=== PATIENT | female | born 1960 | race Caucasian/White ===

== ENCOUNTER 2020-04-21 10:10 | Outpatient (CLI) | payer BC, SELFPAY ==
--- NOTE | ~2020-04-21 | US_ITS ---
EXAMINATION: 1. US FNA w image guidance 2. US FNA additional DATE: 04/21/2020 11:11 INDICATION: Thyroid nodules. TECHNIQUE: The procedure and its benefits, risks, and benefits were discussed with the patient. Risks specifical ly discussed included bleeding. The patient verbalized understanding of the risks and agreed to proce ed. The neck was prepped and draped in the usual sterile manner. 1% lidocaine was used for local ane sthesia. Five passes were made with a 25G needle into the lesion in right thyroid lobe. Appropriate needle location was documented with continuous sonographic guidance. 5 passes were made with a 25-gauge needle into the lesion in right left thyroid lobe. Appropriate nee dle location was documented with continuous sonographic guidance. There were no immediate complicatio ns. The patient understood to call the ordering physician for results after a week and a half and radhames balized that understanding. FINDINGS: Grayscale ultrasound images demonstrate needles advanced into a 1.5 cm nodule in right thyroid lobe f or biopsy. Grayscale ultrasound images demonstrate needles advanced into a 1.6 cm nodule in left thyr oid lobe. IMPRESSION: 1. Ultrasound-guided fine needle aspiration of a right thyroid nodule. 2. Ultrasound-guided fine-needle aspiration of a left thyroid nodule. Reviewed, dictated and finalized at location A. IMPRESSION: 1. Ultrasound-guided fine needle aspiration of a right thyroid nodule. 2. Ultrasound-guided fine-needle aspiration of a left thyroid nodule.
== END 2020-04-21 10:11 | disposition home or self-care (01) ==
PROVIDERS: PCP Internal Medicine; Visit Provider Otolaryngology
DX: E04.2 Nontoxic multinodular goiter (principal)
CPT/HCPCS: 10005; 10006; 88173; 88305; 88342

== ENCOUNTER 2020-06-04 07:26 | Outpatient (CLI) | payer BC, SELFPAY ==
--- NOTE | ~2020-06-04 | MM_ITS ---
EXAMINATION: MM screening [facility] BI w larry HISTORY: Screening TECHNIQUE: Craniocaudal and mediolateral oblique 3-D tomosynthesis images were obtained and synthetic 2-D images were generated. CAD analysis was submitted and interpreted. COMPARISON: Comparison to multiple prior studies sequentially, with oldest reviewed study dated 09/2014. BREAST PARENCHYMAL COMPOSITION: There are scattered areas of fibroglandular density. FINDINGS: Breast asymmetries are stable. There is no evidence of suspicious mass, calcification, or a rchitectural distortion to suggest malignancy in either breast. There has been no suspicious interval change. IMPRESSION: 1. No mammographic evidence of malignancy. 2. Recommend routine screening mammography in one year. BI-RADS Category 2: Benign finding(s). Reviewed, dictated and finalized at location A. CH OR DEPARTMENT CHIEF LIBRARIAN
== END 2020-06-04 07:27 | disposition home or self-care (01) ==
LOC: ANHIMG 07:28
PROVIDERS: PCP Internal Medicine; Visit Provider Obstetrics & Gynecology
DX: Z12.31 Encounter for screening mammogram for malignant neoplasm of breast (principal)
CPT/HCPCS: 77063; 77067

== ENCOUNTER 2021-05-08 13:48 | Outpatient (CLI) | payer BC, SELFPAY ==
--- NOTE | ~2021-05-08 | US_ITS ---
EXAMINATION: US thyroid DATE: 05/08/2021 15:07 INDICATION: Nontoxic multinodular goiter. TECHNIQUE: Multiple ultrasound images of the thyroid were obtained. COMPARISON: Ultrasound 04/21/2020, 03/04/2015, 02/05/20 FINDINGS: The right thyroid lobe measures 5.0 x 2.0 x 1.3 cm. The left thyroid lobe measures 5.2 x 1.6 x 1.6 c m. The thyroid demonstrates diffusely heterogeneous echogenic of the. Vascularity is normal. In the right thyroid lobe, there is an 11 mm solid, hypoechoic, vuxyi-nojw-htoe nodule with ill-defined cristian in without echogenic foci (TI-RADS TR4). In the right thyroid lobe left thyroid lobe, there is a 17 m m solid, hypoechoic, wolie-ogot-glva nodule with smooth margin without echogenic foci (TR4), stable f rom 04/21/20 when biopsy was benign. In the left thyroid lobe, there is a 10 mm solid, hypoechoic, wi vla-dgzl-owoi nodule with ill-defined margin without echogenic foci (TR4). There are multiple subcent imeter nodules in the thyroid. IMPRESSION: 1. Multinodular goiter. Thyroid ultrasound is recommended in one year. Reviewed, dictated and finalized at location A. NG TRIMMER
== END 2021-05-08 13:49 | disposition home or self-care (01) ==
PROVIDERS: PCP Internal Medicine; Visit Provider Otolaryngology
DX: E04.2 Nontoxic multinodular goiter (principal)
CPT/HCPCS: 76536

== ENCOUNTER 2021-06-07 07:45 | Outpatient (CLI) | payer BC, SELFPAY ==
--- NOTE | ~2021-06-07 | MM_ITS ---
EXAMINATION: MM screening [facility] BI w larry HISTORY: Screening TECHNIQUE: Craniocaudal and mediolateral oblique 3-D tomosynthesis images were obtained and synthetic 2-D images were generated. CAD analysis was submitted and interpreted. COMPARISON: Comparison to multiple prior studies sequentially, with oldest reviewed study dated 09/2015. BREAST PARENCHYMAL COMPOSITION: Breast composed of scattered areas of fibroglandular density. FINDINGS: There is no evidence of suspicious mass, calcification, or architectural distortion to sugg est malignancy in either breast. There has been no suspicious interval change. IMPRESSION: 1. No mammographic evidence of malignancy. 2. Recommend routine screening mammography in one year. BI-RADS Category 1: Negative Reviewed, dictated and finalized at location A. INE PIE MAKER
== END 2021-06-07 07:46 | disposition home or self-care (01) ==
LOC: ANHIMG 07:47
PROVIDERS: PCP Internal Medicine; Visit Provider Obstetrics & Gynecology
DX: Z12.31 Encounter for screening mammogram for malignant neoplasm of breast (principal)
CPT/HCPCS: 77063; 77067

== ENCOUNTER → 2022-06-01 08:11 | Outpatient (CLI) | payer BC, SELFPAY ==
--- NOTE | ~2022-06-01 | US_ITS ---
EXAMINATION: US thyroid DATE: 06/01/2022 08:38 INDICATION: Nontoxic multinodular goiter. TECHNIQUE: Multiple ultrasound images of the thyroid were obtained. COMPARISON: Ultrasound 05/08/2021 FINDINGS: The right thyroid lobe measures 4.7 x 1.5 x 1.6 cm. The left thyroid lobe measures 4.6 x 1.5 x 1.6 c m. In the right thyroid lobe, there is a 7 mm solid, hypoechoic, wider than tall nodule with smooth margin without echogenic foci (TI-RADS TR4). In the right thyroid lobe, there is a 9 mm mixed cystic and solid, hypoechoic, wider than tall nodule with smooth margin without echogenic foci (TR3). In the right thyroid lobe, there is a 13 mm solid, hypoechoic, wider than tall nodule with ill-defined cristian in and punctate echogenic foci (TR5), increased from 9 mm on 03/04/15. In the left thyroid lobe, there is a 1.3 cm solid, isoechoic, wider than tall nodule with ill-defined margin and punctate echogenic f oci (TR4), stable from 04/21/20 when biopsy was benign. IMPRESSION: 1. Multinodular goiter. Consider ultrasound-guided fine-needle aspiration of the 13 mm nodule in infe rior right thyroid lobe. Reviewed, dictated and finalized at location A. LIARY ENGINEER IMPRESSION: 1. Multinodular goiter. Consider ultrasound-guided fine-needle aspiration of th e 13 mm nodule in inferior right thyroid lobe.
== END ==
PROVIDERS: PCP Otolaryngology; Visit Provider Otolaryngology
DX: E04.2 Nontoxic multinodular goiter (principal)
CPT/HCPCS: 76536

== ENCOUNTER 2022-06-27 08:57 | Outpatient (CLI) | payer BC, SELFPAY ==
--- NOTE | ~2022-06-27 | US_ITS ---
EXAMINATION: US FNA w image guidance DATE: 06/27/2022 10:13 INDICATION: TI-RADS 5 nodules at the inferior right thyroid TECHNIQUE: A time-out was performed to verify the patient's name, date of , and procedure to be performed . The procedure and its benefits and risks were discussed with the patient. Risks specifically discus sed included bleeding and infection. The patient understood the risks and agreed to proceed. The neck was prepped and draped in the usual sterile manner. 3 mL 1% lidocaine was used for local anesthesia . 6 passes were made with a 25G needle into the lesion. Appropriate needle location was documented with continuous sonographic guidance. A sterile bandage was applied. There were no immediate compli cations. FINDINGS: Grayscale ultrasound images demonstrate biopsy needles advanced into the solid hypoechoic nodule of c oncern at the inferior right thyroid which measures 1.4 cm on the current study. IMPRESSION: 1. Successful ultrasound-guided fine needle aspiration of the enlarging 1.4 cm nodule at the inferio r right thyroid lobe. Reviewed, dictated and finalized at location A. NG FORMER IMPRESSION: 1. Successful ultrasound-guided fine needle aspiration of the enlarging 1.4 cm nodule at the inferior right thyroid lobe.
== END 2022-06-27 08:58 | disposition home or self-care (01) ==
PROVIDERS: PCP Internal Medicine; Visit Provider Otolaryngology
DX: E04.1 Nontoxic single thyroid nodule (principal)
CPT/HCPCS: 10005; 88173; 88305

== ENCOUNTER 2022-07-13 07:46 | Outpatient (CLI) | payer BC, SELFPAY ==
--- NOTE | ~2022-07-13 | MM_ITS ---
EXAMINATION: MM screening [facility] BI w larry HISTORY: Screening TECHNIQUE: Craniocaudal and mediolateral oblique 3-D tomosynthesis images were obtained and synthetic 2-D images were generated. CAD analysis was submitted and interpreted. COMPARISON: Comparison to multiple prior studies sequentially, with oldest reviewed study dated 05/01. BREAST PARENCHYMAL COMPOSITION: There are scattered areas of fibroglandular density. FINDINGS: There is no evidence of suspicious mass, calcification, or architectural distortion to sugg est malignancy in either breast. There has been no suspicious interval change. IMPRESSION: 1. No mammographic evidence of malignancy. 2. Recommend routine screening mammography in one year. BI-RADS Category 1: Negative Reviewed, dictated and finalized at location A. NT SERVICES ANALYST
== END 2022-07-13 07:47 | disposition home or self-care (01) ==
LOC: ANHIMG 07:47
PROVIDERS: PCP Internal Medicine; Visit Provider Obstetrics & Gynecology
DX: Z12.31 Encounter for screening mammogram for malignant neoplasm of breast (principal)
CPT/HCPCS: 77063; 77067

== ENCOUNTER → 2022-12-18 13:46 | Outpatient (CLI) | payer BC, SELFPAY ==
--- NOTE | ~2022-12-18 | CT_ITS ---
CT of the Abdomen and Pelvis: Indication: Abdominal pain Technique: 2.5 mm axial scans were obtained through the abdomen and pelvis following intravenous adm inistration of 100 cc of Omnipaque 350. Dose reduction technique was used on this scan by utilizing a utomated exposure control and iterative reconstruction technique. The dose-length product (DLP) was 8 85.08 mGy-cm. Findings: Scans through the lung bases are unremarkable. The liver, spleen, pancreas, gallbladder, adrenals and kidneys are within normal limits. No evidence of aortic aneurysm. No lymphadenopathy. No bowel obstruction or bowel wall thickening. There is no evidence to suggest acute appendicitis. Images through the pelvis were performed. Urinary bladder unremarkable. No adnexal mass seen. No asci marsha. Impression: No significant abnormalities seen. Reviewed, dictated and finalized at [facility]. Impression: No significant abnormalities seen.
[2022-12-18 14:16] LABS: Estimated Glomerular Filt Rate > 60
== END ==
PROVIDERS: PCP Internal Medicine; Visit Provider Internal Medicine
DX: R10.9 Unspecified abdominal pain (principal)
CPT/HCPCS: 74177; Q9967

== ENCOUNTER 2023-09-12 07:17 | Outpatient (CLI) | payer BC, SELFPAY ==
--- NOTE | ~2023-09-12 | MM_ITS ---
EXAMINATION: MM screening abelardo BI w larry HISTORY: Screening mammogram TECHNIQUE: Craniocaudal and mediolateral oblique 3-D tomosynthesis images were obtained and synthetic 2-D images were generated. CAD analysis was submitted and interpreted. COMPARISON: 07/13/2022, bilateral screening mammogram examinations BREAST PARENCHYMAL COMPOSITION: There are scattered areas of fibroglandular density. FINDINGS: There is no evidence of suspicious mass, calcification, or architectural distortion to sugg est malignancy in either breast. There has been no suspicious interval change. IMPRESSION: 1. No mammographic evidence of malignancy. 2. Recommend routine screening mammography in one year. BI-RADS Category 1: Negative Reviewed, dictated and finalized at location A.
== END 2023-09-12 07:18 | disposition home or self-care (01) ==
PROVIDERS: PCP Internal Medicine; Visit Provider Obstetrics & Gynecology
DX: Z12.31 Encounter for screening mammogram for malignant neoplasm of breast (principal)
CPT/HCPCS: 77063; 77067

== ENCOUNTER 2024-08-25 15:12 | Outpatient (CLI) | payer BC, SELFPAY ==
--- NOTE | ~2024-08-25 | US_ITS ---
EXAMINATION: US thyroid DATE: 08/25/2024 15:40 INDICATION: Thyroid nodules TECHNIQUE: Multiple ultrasound images of the thyroid were obtained. COMPARISON: 06/01/2022 FINDINGS: The right thyroid lobe measures 4.2 x 1.7 x 1.7 cm. The previously biopsied nodule within the lower pole of the right lobe of the gland is no longer visu alized on today's study. Two nodules are now present. The first within the mid pole of the right lobe of the thyroid gland measuring 4.8 x 4.5 x 4.2 mm. Composition -cystic Echogenicity -hyperechoic Shape - wider than tall Margin - smooth Echogenic foci - none. = TR1, benign. The second nodule is located within the medial margin of the lower pole of the right lobe of the thyr oid gland measuring 9.6 x 5.0 x 7.5 mm Composition - spongiform Echogenicity -hyperechoic and isoechoic (1) Shape - wider than tall Margin - smooth Echogenic foci - none. = TR1, benign. The left thyroid lobe measures 5.0 x 1.5 x 1.9 cm. Within the lower pole of the left lobe of the thyroid gland is redemonstration of a thyroid nodule me asuring 13.5 x 8.6 x 8.6 mm (decreased in size from previous study). Composition - spongiform Echogenicity - hyperechoic and isoechoic (1) Shape - wider than tall Margin - smooth Echogenic foci - none. = TR1, benign. The isthmus measures 0.1cm in anterior to posterior dimension. There is otherwise normal echotexture and echogenicity throughout the remainder of the thyroid gland. No additional discrete nodules are identified. Globally increased vascular flow is present throughout. IMPRESSION: TR1, benign nodules within the right and left lobes of the thyroid gland for which no FNA is recommen ded. Follow-up thyroid ultrasound in 2-3 years may be performed but is not strictly recommended. Reviewed, dictated and finalized at location A. NG PICKLING PACKER IMPRESSION: TR1, benign nodules within the right and left lobes of the thyroid gland for wh ich no FNA is recommended. Follow-up thyroid ultrasound in 2-3 years may be performed but is not strictly recommended.
== END 2024-08-25 15:13 | disposition home or self-care (01) ==
PROVIDERS: PCP Otolaryngology Otolaryngology/Facial Plastic Surgery; Visit Provider Otolaryngology Otolaryngology/Facial Plastic Surgery
DX: E04.2 Nontoxic multinodular goiter (principal)
CPT/HCPCS: 76536

== ENCOUNTER 2024-12-08 08:33 | Outpatient (CLI) | payer BC, SELFPAY ==
--- NOTE | ~2024-12-08 | DEXA_ITS ---
Bone Density Report Name: HOANG ZAVALETA Age: 64 Sex: Female Ethnicity: White Date of : 1960 Indication: postmenopausal; screening for osteoporosis; Referring Provider: LALO FORD Study: Bone densitometry was performed. Exam Date: December 08, 2024 Accession number: [id number] Bone Density: Region BMD T-score Z-score Classification AP Spine(L1-L4) 0.816 -2.1 -0.4 Osteopenia Femoral Neck (Left) 0.737 -1.0 0.4 Normal Total Hip (Left) 0.954 0.1 1.2 Normal Femoral Neck (Right) 0.707 -1.3 0.2 Osteopenia Total Hip (Right) 0.864 -0.6 0.5 Normal Total Hip Mean 0.909 -0.3 0.9 Normal World Health Organization criteria for BMD impression classify patients as: Normal (T-score at or above -1.0), Osteopenia (T-score between -1.0 and -2.5), or Osteoporosis (T-score at or below -2.5). 10-year Fracture Risk(1): Major Osteoporotic Fracture 7.8% Hip Fracture 0.7% Reported Risk Factors: [place] (), Neck BMD=0.707, BMI=22.7 (1) FRAX(R) Version 3.08. Fracture probability calculated for an untreated patient. Fracture probability may be lower if the patient has received treatment. Previous Exams: Region Exam Age BMD T-score BMD Change BMD Change Date g/cm2 vs Baseline vs Previous AP Spine (L1-L4) 12/08/2024 64 0.816 -2.1 -0.128 (-13.6% -0.128 (-13.6% 09/11/2017 57 0.944 -0.9 Total Hip(Left) 12/08/2024 64 0.954 0.1 0.002 (0.2%) 0.002 (0.2%) 09/11/2017 57 0.952 0.1 Total Hip(Right) 12/08/2024 64 0.864 -0.6 -0.042 (-4.7%) -0.042 (-4.7%) 09/11/2017 57 0.906 -0.3 *Denotes significance at 95% confidence level, LSC for AP Spine = 0.022 g/cm2, LSC for Total Hip = 0.027 g/cm2 Clinical Information Provided by Patient: Has used the following medications: Vitamin D, Calcium Patient maximum height was 63 Drinks caffeinated beverages Onset of menses at age 15 Number of children 1 Impression: The patient has low bone mass, based on the Total Spine T-score. The patient has an estimated ten-year risk of hip fracture of 0.7% and an estimated ten-year risk of major fracture of 7.8%, based on the WHO FRAX algorithm. The BMD for the AP Spine (L1-L4) decreased, changing by -13.6% since the last DXA exam. The BMD for the Total Hip(Right) decreased, changing by -4.7% since the last DXA exam. Discussion: BONE DENSITY IS LOW AT ONE OR MORE SKELETAL SITES. This patient's lowest T-score is low at one or more skeletal sites. It meets the World Health Organization's (WHO) criteria for ?low bone mass? (T-score between -1.0 and -2.5). The patient's 10-year risk of fracture as calculated by FRAX is less than the threshold where pharmacological therapy is recommended by the National Osteoporosis Foundation (NOF). However, all treatment decisions require clinical judgment and consideration of individual patient factors, including patient preferences, comorbidities, previous drug use, risk factors not captured in the FRAX model (e.g., frailty, falls, vitamin D deficiency, increased bone turnover, interval significant decline in bone density) and possible under or overestimation of fracture risk by FRAX. The patient should follow a healthful lifestyle (good nutrition with adequate calcium and vitamin D, and appropriate weight-bearing exercise). Follow-Up: Consider repeating this study in 2 years to reassess this patient's status, or sooner if there is some new clinical indication. Reported by: OWEN on 12/08/2024 9:26:00 AM. Reviewed, dictated and finalized at location A.
--- NOTE | ~2024-12-08 | MM_ITS ---
EXAMINATION: MM screening abelardo BI w larry HISTORY: Screening TECHNIQUE: Craniocaudal and mediolateral oblique 3-D tomosynthesis images were obtained and synthetic 2-D images were generated. CAD analysis was submitted and interpreted. COMPARISON: Comparison to multiple prior studies sequentially, with oldest reviewed study dated 05/02. BREAST PARENCHYMAL COMPOSITION: Not dense: There are scattered areas of fibroglandular density. FINDINGS: Stable benign low-density mass upper outer quadrant of the left breast. There is no evidenc e of suspicious mass, calcification, or architectural distortion to suggest malignancy in either [address]. There has been no suspicious interval change. IMPRESSION: 1. No mammographic evidence of malignancy. 2. Recommend routine screening mammography in one year. BI-RADS Category 2: Benign finding(s). Reviewed, dictated and finalized at location []
--- OUTSIDE RECORDS SUMMARY | 2024-12-08 08:47 | XMS_ITS | CONTINUITY OF CARE DOCUMENT ---
Author Name kel begum Address Unknown Organization [facility] Office Address [address] [place] [address] Phone [phone] Care Team Providers Care Senior Painter Name Role Phone Sudheer Ann MD Unavailable Yinka Chow DO Unavailable Yinka Chow DO Unavailable PROBLEMS Condition Status Date Provider Notes Cardiovascular screening active Carolann Verdin INSURANCE PROVIDERS Payer name Policy type / Coverage type [place] red green party ID [facility] [id number] TREATMENT PLAN Date Name CT, Coronary Calcium Score HISTORY OF PROCEDURES Procedure Date Procedure Name Provider Procedure Notes S tatus CT- Coronary CA score Sudheer Ann MD completed
--- OUTSIDE RECORDS SUMMARY | 2024-12-08 08:47 | XMS_ITS | Encounter Summary ---
Author Organization [facility] Address [address] [place] [address] Care Team Providers Care Music Therapy Specialist Name Role Phone Unavailable Primary Care Provider Unavailabl e Encounter Details Date Type Department Care Team (Late st Contact Info) Description 11/10/2021 Lab Requisition [facility] DermPath Lab [address] [place] [address] Trenton Mercedes Jr., MD [address] [place] [address] Social History Tobacco Use Types Packs/Day Years Used Date Smoking Tobacco: Never Assessed Comments Unknown Sex and Gender Information Value Date Recorded Sex Assigned at Not on file 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 Gender Identity Not on file Sexual Orientation Not on file documented as of this encounter Plan of Treatment Not on file documented as of this encounter Procedures Procedure Name Priority Date/Time Associated Diagnosis Comments DERMATOPATHOLOGY Routine 11/09/2021 12:0 0 AM CDT documented in this encounter Results * DERMATOPATHOLOGY (11/09/2021 12:00 AM CDT) Case Report Dermatopathology Report Case: [id number] Authorizing Provider: Trenton Mercedes Jr., MD Collected: 11/09/2021 12:00 AM Ordering Location: [facility] DermPath Lab Received: 11/10/2021 10:49 AM Pathologist: Chloe Genao MD Specimens: A) - Skin, left proximal pretibial region B) - Skin, right proximal dorsal forearm 2 3:36 PM CDT DERMATOPATHOLOGY LABORATORY Final Diagnosis Specimen A. SKIN, left proximal pretibial region: DERMATOFIBROMA, SUPERFICIAL PORTIONS OF (D23.9) (see microscopic description) Specimen B. SKIN, right proximal dorsal forearm: ACTINIC KERATOSIS (L57.0) 2 3:36 PM CDT DERMATOPATHOLOGY LABORATORY at 1536 CDT Clinical History A: Basal cell carcinoma vs irritated seborrheic keratosis vs squamous cell carcinoma vs dermal nevus B: Actinic keratosis vs Martnii's disease vs basal cell carcinoma vs telangiectasia 2 3:36 PM CDT DERMATOPATHOLOGY LABORATORY Gross Description Specimen A: Received is one formalin filled container labeled with the patient's name and designated left proximal pretibial region. The specimen consists of a shave biopsy measuring 6x4x1 mm. Jar 0. Specimen B: Received is one formalin filled container labeled with the patient's name and designated right proximal dorsal forearm. The specimen consists of a shave biopsy measuring 6x5x1 mm. Jar 0. 2 3:36 PM CDT DERMATOPATHOLOGY LABORATORY Microscopic Description Specimen A. SKIN, left proximal pretibial region: There is epidermal hyperplasia. Within the dermis, there is the superficial aspect of fibrohistiocytic cells in haphazard array among coarse collagen bundles. The hematoxylin and eosin stain is reviewed; immunohistochemical stains are performed to further assess the histologic features. Lesional cells are positive for Factor XIIIa and patchy CD163. Lesional cells do not show significant staining with S100, SMA, Desmin, and Pancytokeratin. CD34 stain shows focal weak positivity predominantly at the periphery of the lesion and spares the central portion. Specimen B. SKIN, right proximal dorsal forearm: There is focal parakeratosis. The lower half of the epidermis shows disorderly maturation of keratinocytes with nuclear pleomorphism. 2 3:36 PM CDT DERMATOPATHOLOGY LABORATORY Disclaimer An external and internal positive and negative controls are appropriate for the histochemical, immunohistochemical and immunofluorescence stain(s) in this case (if any), except where stated explicitly. The performance characteristics of the stain(s) cited in this report were developed and its performance characteristic determined by the Dermatopathology Laboratory at [facility], directed by Dr. Padma Schumacher. These tests need not be, and therefore are not, approved by the [place] Food and Drug Administration. The tests are used for clinical purposes. Billing Codes Specimen Charges Stain Charges 67133 35000 1 1 94501 23027 37025 34057 46018 12240 69620 1 1 1 1 1 1 1 2 3:36 PM CDT DERMATOPATHOLOGY LABORATORY Embedded Images 2 3:36 PM CDT DERMATOPATHOLOGY LABORATORY Pathology/Cytology TISSUE SPECIMEN FROM SKIN / Unknown 11/09/2021 11/10/2021 10:49 AM CDT Miscellaneous samples (specimen) TISSUE SPECIMEN FROM SKIN / Unknown 11/09/2021 11/10/2021 10:49 AM CDT us Trenton Mercedes Jr., MD LAB - PATHOLOGY/CYTOLOG Y ORDERABLES Final Result DERMATOPATHOLOGY LABORATORY [facility] - Department of Dermatology [address], [address] [phone] documented in this encounter Visit Diagnoses Not on filedocumented in this encounter
--- OUTSIDE RECORDS SUMMARY | 2024-12-08 08:47 | XMS_ITS | Encounter Summary ---
Author Organization [facility] Address [address] [place] [address] Care Team Providers Care Green Hide Inspector Name Role Phone Unavailable Primary Care Provider Unavailabl e Encounter Details Date Type Department Care Team (Late st Contact Info) Description 12/29/2019 Lab Requisition [facility] DermPath Lab [address] [place] [id number] [place] [address] [place] [address] Social History Tobacco Use Types Packs/Day Years Used Date Smoking Tobacco: Never Assessed Comments Unknown Sex and Gender Information Value Date Recorded Sex Assigned at Not on file Legal Sex Female 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 Gender Identity Not on file Sexual Orientation Not on file documented as of this encounter Plan of Treatment Not on file documented as of this encounter Procedures Procedure Name Priority Date/Time Associated Diagnosis Comments DERMATOPATHOLOGY Routine 12/28/2019 12:0 0 AM CDT documented in this encounter Results * DERMATOPATHOLOGY (12/28/2019 12:00 AM CDT) Case Report Dermatopathology Report Case: [id number] Authorizing Provider: Hina Tejada MD Collected: 12/28/2019 12:00 AM Ordering Location: [facility] DermPath Lab Received: 12/29/2019 01:06 PM Pathologist: Mary Hernandez MD Specimen: Skin, left superior parietal scalp 0 5:35 PM CDT DERMATOPATHOLOGY LABORATORY Final Diagnosis Specimen A. SKIN, left superior parietal scalp: BENIGN VERRUCOUS KERATOSIS, INFLAMED (L82.1) 0 5:35 PM CDT DERMATOPATHOLOGY LABORATORY at 1735 CDT Clinical History Inflamed seborrheic keratosis vs squamous cell carcinoma. 0 5:35 PM CDT DERMATOPATHOLOGY LABORATORY Gross Description Specimen A: Received is one formalin filled container labeled with the patient's name and designated left superior parietal scalp. The specimen consists of a shave biopsy measuring 25j69e0 mm. Jar 0. 0 5:35 PM CDT DERMATOPATHOLOGY LABORATORY Microscopic Description Specimen A. SKIN, left superior parietal scalp: Sections show hyperkeratosis, papillomatosis, hypergranulosis, and acanthosis. Inflammatory cells are present within the dermis. These histological findings can be seen in a verruca vulgaris or a seborrheic keratosis. 0 5:35 PM CDT DERMATOPATHOLOGY LABORATORY Disclaimer An external and internal positive and negative controls are appropriate for the histochemical, immunohistochemical and immunofluorescence stain(s) in this case (if any), except where stated explicitly. The performance characteristics of the stain(s) cited in this report were developed and its performance characteristic determined by the Dermatopathology Laboratory at [facility], directed by Dr. Padma Schumacher. These tests need not be, and therefore are not, approved by the [place] Food and Drug Administration. The tests are used for clinical purposes. Billing Codes Specimen Charges Stain Charges 95938 1 0 5:35 PM CDT DERMATOPATHOLOGY LABORATORY Embedded Images 0 5:35 PM CDT DERMATOPATHOLOGY LABORATORY Pathology/Cytolog y TISSUE SPECIMEN FROM SKIN / Unknown 12/28/2019 12/29/2019 1:06 PM CDT us Hina Tejada MD LAB - PATHOLOGY/CYTOLOGY ORDERABLES Final Result DERMATOPATHOLOGY LABORATORY [facility] - Department of Dermatology Staffing Program Manager [place] [address], [facility] [phone] documented in this encounter Visit Diagnoses Not on filedocumented in this encounter
--- OUTSIDE RECORDS SUMMARY | 2024-12-08 08:48 | XMS_ITS | Clinical Summary ---
Author Organization [facility] Address [address] [place] [address] Care Team Providers Care Machine Baster Name Role Phone Unavailable Primary Care Provider Unavailabl e Source Comments [facility] [employer],non-owned Affiliates and Associated Physician Practices is amultiple site organization consisting of ambulatory clinics and hospital sitesin [place], [place] and [place]. This disclosure is being madepursuant to the Care Everywhere program and may not contain all information available regarding this patient. 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 Gender Identity Not on file Sexual Orientation Not on file Plan of Treatment Health Maintenance Due Date Last Done Comments COLOGUARD (AGES 45-75) - COL ON CA SCREENING 1961 COLON MONITORING 1961 COLONOSCOPY - COLON CA SCREENING 1961 CT COLONOGRAPHY - COLON CA SCREENING 1961 Colorectal Cancer Screening 1961 FIT - COLON CA SCREENING 1961 FLEX SIG - COLON CA SCREENING 1961 LIPID TESTING 1961 MAMMOGRAM 1961 HIV SCREENING 1976 HEPATITIS C SCREENING 04/25/1979 DTAP/TDAP/TD VACCINES (1 - Tdap) 1980 PNEUMOCOCCAL VACCINE 50+ (1 of 1 - PCV) 2011 ZOSTER VACCINE (1 of 2) 2011 COVID-19 VACCINE (1 - 2023-2 5 season) 2024 DEPRESSION SCREENING 07/01/2024 INFLUENZA VACCINE (Season Ended) 2025 Respiratory Syncytial Virus (RSV) Vaccine Pt: or over 60 yrs (1 - 1-dose 75+ series) 2036 HEPATITIS B VACCINE Aged Out No longe r eligible based on patient's age to complete this topic HIB VACCINE Aged Out No longer eligi ble based on patient's age to complete this topic HPV VACCINE Aged Out No longer eligi ble based on patient's age to complete this topic MENINGOCOCCAL (Group B) VACC INE SHARED DECISION-MAKING Aged Out No longer eligibl e based on patient's age to complete this topic MENINGOCOCCAL GROUPS A/C/Y/W VACCINE Aged Out No longer eligible b ased on patient's age to complete this topic Insurance Member Subscriber Plan / Payer (Ef fective 2017-Present) Name:Pebbles Zavaleta Relation to Subscriber:Self Name:PEBBLES ZAVALETA Payer ID:[id number] (NAIC) Type:O Address: [facility] [address] [place] [id number]
--- OUTSIDE RECORDS SUMMARY | 2024-12-08 08:48 | XMS_ITS | Data Portability ---
Author Organization [facility] Address [address] [place] [address] Care Team Providers Care Packer Inspector Name Role Phone YASEMIN CHOW Primary Care Provider [phone] Assessment Encounter Date Assessment Date Assessment LastModified by Organization Details LastModified Time 09/25/2023 09/25/2023 Blood work we wi ll try some MiraLAX for constipation she thinks he had a colonoscopy just in the last year or so. We discussed more restratification for cardiovascular disease high-sensitivity CRP coronary calcium scoring etc. actually gave her the name of a top frame maker at [facility] if she wanted to go and see if there is anything further to mitigate any of her cardiovascular risk refill her statin see me back in about 3 months but she will let me know in 1 month if the MiraLAX has helped her abdominal discomfort it seems to have done so in the past. Not available 09/26/2023 08:28:17 01/21/2024 01/21/2024 obtain her old colonoscopy report go ahead and use the MiraLax continue with rosuvastatin and levothyroxine follow up with me in 4 months Not available 01/21/2024 22:22:24 07/21/2024 07/21/2024 blood work. Neutrogena T/Gel for the seborrheic dermatitis we will continue current therapy pneumococcal vaccination follow up 6 months x-ray right foot [email or web address] Not available 07/26/2024 21:13:14 Plan of Treatment Reminders Order Date Submit Date Provider Last Modified By Organization Details Last Modified Time Details Appointments ANY 15 2024 09:00A M Yasemin Chow MD Not available Not available Not available Lab T4, free, serum 2024 025 [place] Quirino, [address], [place], [address], 07/22/2024 06:18:14 T3, free, serum or plasma 2024 025 [place] Quirino, [address], [place], [address], 07/22/2024 06:18:13 TSH, ultra-s ensitiv e, serum 2024 025 [place] [facility], [address], [place], [address], 07/22/2024 06:18:11 CBC w/ auto diff 2024 025 [place] [facility], [address], [place], [address], 07/22/2024 06:18:12 CMP, serum or plasma 2024 025 [place] [facility], [address], [place], [address], 07/22/2024 06:18:10 lipid panel, serum 2024 025 [place] Quirino, [address], [place], [address], 07/22/2024 06:18:09 CBC w/ auto diff 2023 024 [facility]GENE[facility]ASHIRA Win, [address], [place], [address], 09/26/2023 13:11:39 lipid panel, serum 2023 024 [place] Quirino, [address], [place], [address], 09/26/2023 13:11:37 CMP, serum or plasma 2023 [facility], [address], [place], [address], 09/26/2023 13:11:38 CRP, high sensiti vity, serum or plasma 2023 [facility], [address], [place], [address], 09/26/2023 13:11:36 lipopro tein a, qn, serum 2023 [facility], [address], [place], [address], 09/26/2023 13:11:35 TSH, ultra-s ensitiv e, serum 2023 [facility], [address], [place], [address], 09/26/2023 13:11:39 T3, free, serum or plasma 2023 [facility], [address], [place], [address], 09/26/2023 13:11:40 T4, free, serum 2023 [facility], [address], [place], [address], 09/26/2023 13:11:41 urinaly sis, dipstic k 2020 adeola In-Office Order, Internal Use Only DO Not Attach Compendium DO Not Attach Compendium, Do Not Delete/merge, [id number] 04/03/2021 16:04:36 pap, IG + HPV, cervica l - please use Z11.51 in additio n to code above for HPV testing . 2020 [facility], [address], [place], [address], 04/06/2021 09:13:27 culture , vaginal /rectal , strepto coccus group B 2020 021 [place] [facility], [address], [place], [address], 04/10/2021 04:06:41 bacteri al vaginos is panel, vaginal 2020 021 [facility] [facility], [address], [place], [address], 04/10/2021 04:06:40 Referral None recorde d. Procedures None recorde d. Surgeries None recorde d. Imaging XR, foot 2024 025 [facility] ([facility]), [address], [place], [address], 07/28/2024 16:38:09 MAMMO, screeni ng, bilater al 2020 021 [facility], [address], [place], [address], 06/07/2021 10:08:48 MAMMO, screeni ng, bilater al 2020 021 [facility], [address], [place], [address], 05/30/2021 10:23:10 Medication Orders rosuvas tatin 10 mg tablet [address]/Pharmacy #[id number], [address] , [place], [address], 09/26/2023 08:26:42 levothy roxine 75 mcg tablet [address]/Pharmacy #[id number], [address], [place], [address], 09/25/2023 11:40:24 multivi tamin tablet 2020 [facility]21 [id number], [address], [place], [address], 09/25/2023 09:53:07 Calcium with Vitamin D 600 mg-10 mcg (400 unit) tablet 2020 021 [facility]/Pharmacy #[id number], [address], [place], [address], 09/25/2023 09:51:49 Mimvey 1 mg-0.5 mg tablet 2020 021 [id number], [address], [place], [address], 09/25/2023 09:53:02 multivi tamin tablet 2020 021 [facility]/Pharmacy #[id number], [address], [place], [address], 09/25/2023 09:53:07 Calcium with Vitamin D 600 mg-10 mcg (400 unit) tablet 2020 021 [facility]/Pharmacy #[id number], [address], [place], [address], 09/25/2023 09:51:49 Mimvey 1 mg-0.5 mg tablet 2020 021 [id number] [address] [place], [address], 09/25/2023 09:53:02 Patient TargetsNo targets recorded. Patient Instructions Encounter Date Encounter Id Patient Instructions Last Modified By Organization Details Last Modified Time 12/28/2020 [id number] mammogram: about this test [email or web address] Not available 12/28/2020 12:33:06 mammogram screening patient instructions [email or web address] Not available 12/28/2020 12:33:07 04/03/2021 [id number] mammogram: about this test [email or web address] Not available 04/03/2021 16:04:36 mammogram screening patient instructions [email or web address] Not available 04/03/2021 16:04:36 Reason for Referral None Reported. Results Created Date Observation Date Name Description Value Unit Range Abnormal Flag Note LastModifiedBy Organization Detail LastModifiedTime 04/03/20 21 04/06/2021 IGP, APTIM A HPV diagnosis: Lyudmila fernandez NEGAT NAV FOR INTRA EPITH ELIAL MIKE N OR ODESSA SOLIS . Not Available [facility] ([facility]) [address] [place], [address], 04/06/2021 09:13:27 04/03/2004/06/2021 IGP, APTIM A HPV specimen adequacy: Lyudmila fernandez Satis facto ry for evalu ation . No endoc ervic al compo nent is ident ified . Not Available [facility] ([facility]) [address] [place], [address], 04/06/2021 09:13:27 04/03/20 21 04/06/2021 IGP, APTIM A HPV clinician provided ICD10: Lyudmila fernandez Z01.4 19 Z11.5 1 Z20.2 Not Available [facility] ([facility]) [address] [place], [address], 04/06/2021 09:13:27 04/03/20 21 04/06/2021 IGP, APTIM A HPV performed by: Lyudmila virk, Ryan fernandez (ASCP ) Not Available [facility] ([facility]) [address] [place], [address], 04/06/2021 09:13:27 04/03/20 21 04/06/2021 IGP, APTIM A HPV . . Not Available [facility] ([facility]) [address] [facility], [place], [address], 04/06/2021 09:13:27 04/03/2004/06/2021 IGP, APTIM A HPV note: Commen t The Pap smear is a scree mahesh test desig alley to aid in the detec tion of aury ligna nt and malig nant condi tions of the uteri ne cervi x. It is not a diagn ostic proce dure and shoul d not be used as the sole means of detec ting cervi fela cance r. Both false -posi tive and false -nega tive repor ts do occur . Not Available [facility] ([facility]) [address] [facility], [place], [address], 04/06/2021 09:13:27 04/03/2004/06/2021 IGP, APTIM A HPV test methodology: Lyudmila t This liqui d based ThinP rep(R ) pap test was scree alley with the use of an image guide d carissa bueno. Not Available [facility] ([facility]) [address] [facility], [place], [address], 04/06/2021 09:13:27 04/03/20 21 04/06/2021 IGP, APTIM A HPV HPV aptima Negati ve negati ve This nucle ic acid ampli ficat ion test detec ts fourt een high- risk HPV types (16,1 8,31, 33,35 ,39,4 5,51, 52,56 ,58,5 9,66, 68) witho ut diffe renti ation . Not Available [facility] ([facility]) [address] [place], [address], 04/06/2021 09:13:27 04/03/20 21 04/10/2021 NUSWA B VG+, HSV atopobium vaginae Low - 0 score Not Available [facility] ([facility]) [address] [place], [address], 04/10/2021 04:06:40 04/03/2004/10/2021 NUSWA B VG+, HSV bvab 2 Low - 0 score Not Available [facility] ([facility]) [address] [facility], [place], [address], 04/10/2021 04:06:40 04/03/20 21 04/10/2021 NUSWA B VG+, HSV megasphaera 1 Low - 0 score Calcu late total score by yulia hallman the 3 indiv idual bacte rial vagin osis (BV) marke r score s toget her. Total score is inter prete d as follo ws: Total score 0-1: Indic ates the absen ce of BV. Total score 2: Indet ermin ate for BV. Addit ional clini fela data shoul d be evalu ated to estab manuel a diagn osis. Total score 3-6: Indic ates the prese nce of BV. This test was devel oped and its perfo rmanc e yamileth cteri stics deter mined by [facility]. It has not been clear ed or appro adrienne by the Food and Drug Admin istra tion. Not Available [facility] ([facility]) [address] [facility], [place], [address], 04/10/2021 04:06:40 04/03/2004/10/2021 NUSWA B VG+, HSV azul albicans, KEIRY Negati ve negati ve Not Available [facility] ([facility]) [address] [facility], [place], [address], 04/10/2021 04:06:40 04/03/2004/10/2021 NUSWA B VG+, HSV azul glabrata, KEIRY Negati ve negati ve Not Available [facility] ([facility]) [address] [place], [address], 04/10/2021 04:06:40 04/03/2004/10/2021 NUSWA B VG+, HSV trich vag by KEIRY Negati ve negati ve Not Available [facility] ([facility]) [address] [facility], [place], [address], 04/10/2021 04:06:40 04/03/2004/10/2021 NUSWA B VG+, HSV chlamydia trachomatis, KEIRY Negati ve negati ve Not Available [facility] ([facility]) [address] [facility], [place], [address], 04/10/2021 04:06:40 04/03/2004/10/2021 NUSWA B VG+, HSV neisseria gonorrhoeae, KEIRY Negati ve negati ve Not Available [facility] ([facility]) [address] [facility], [place], [address], 04/10/2021 04:06:40 04/03/2004/10/2021 NUSWA B VG+, HSV hsv 1 KEIRY Negati ve negati ve Not Available [facility] ([facility]) [address] [place], [address], 04/10/2021 04:06:40 04/03/2004/10/2021 NUSWA B VG+, HSV hsv 2 KEIRY Negati ve negati ve Not Available [facility] ([facility]) [address] [place], [address], 04/10/2021 04:06:40 04/03/2004/05/2021 STREP GP B KEIRY strep gp B KEIRY Negati ve negati ve Cente rs for Disea se Contr ol and Preve ntion (CDC) and Ameri can Congr ess of Obste trici ans and Gynec ologi sts (ACOG ) guide lines for preve ntion of perin atal group B strep tococ fela (GBS) disea se speci fy co-co llect ion of a vagin al and recta l swab speci men to maxim ize sensi tivit y of GBS detec tion. Per the CDC and ACOG, swabb ing both the lower vagin a and rectu m subst antia lly incre ases the yield of detec tion phyllis red with sampl ing the vagin a alone . Penic illin G, ampic illin , or cefaz jasbir are indic ated for intra partu m proph ylaxi s of perin atal GBS colon izati on. Refle x susce ptibi lity testi ng shoul d be perfo rmed prior to use of clind amyci n only on GBS isola marsha from penic illin -dario rgic women who are consi dered a high risk for anaph ylaxi s. Treat ment with vanco mycin witho ut addit ional testi ng is warra nted if resis tance to clind amyci n is noted . Not Available [facility] ([facility]) [address] [facility], [place], [address], 04/10/2021 04:06:41 04/03/2004/03/2021 urina lysis , dipst ick Leukocytes Small Not Available In-Offi ce Order Internal Use Only DO Not Attach Compendium DO Not Attach Compendium, Do Not Delete/merge, [id number] 04/03/2021 15:47:13 04/03/20 21 04/03/2021 urina lysis , dipst ick Nitrite negati ve Not Available In-Office Order Internal Use Only DO Not Attach Compendium DO Not Attach Compendium, Do Not Delete/merge, [id number] 04/03/2021 15:47:13 04/03/20 21 04/03/2021 urina lysis , dipst ick Urobilinogen .2 Not Available In-Of fice Order Internal Use Only DO Not Attach Compendium DO Not Attach Compendium, Do Not Delete/merge, [id number] 04/03/2021 15:47:13 04/03/20 21 04/03/2021 urina lysis , dipst ick Protein Negati ve Not Available In-Office Order Internal Use Only DO Not Attach Compendium DO Not Attach Compendium, Do Not Delete/merge, [id number] 04/03/2021 15:47:13 10/04/04/03/2021 urina lysis , dipst ick pH 6.0 Not Available In-Office Order Internal Use Only DO Not Attach Compendium DO Not Attach Compendium, Do Not Delete/merge, [id number] 04/03/2021 15:47:13 04/03/20 21 04/03/2021 urina lysis , dipst ick Blood Non-He molyze d: Trace Not Available In-Office Order Internal Use Only DO Not Attach Compendium DO Not Attach Compendium, Do Not Delete/merge, [id number] 04/03/2021 15:47:13 04/03/20 21 04/03/2021 urina lysis , dipst ick Specific Buford 1.005 Not Available In-Off ice Order Internal Use Only DO Not Attach Compendium DO Not Attach Compendium, Do Not Delete/merge, [id number] 04/03/2021 15:47:13 04/03/20 21 04/03/2021 urina lysis , dipst ick Ketone Negati ve Not Available In-Office Order Internal Use Only DO Not Attach Compendium DO Not Attach Compendium, Do Not Delete/merge, [id number] 04/03/2021 15:47:13 04/03/20 21 04/03/2021 urina lysis , dipst ick Bilirubin Negati ve Not Available In-Office Order Internal Use Only DO Not Attach Compendium DO Not Attach Compendium, Do Not Delete/merge, [id number] 04/03/2021 15:47:13 04/03/20 21 04/03/2021 urina lysis , dipst ick Glucose Negati ve Not Available In-Office Order Internal Use Only DO Not Attach Compendium DO Not Attach Compendium, Do Not Delete/merge, [id number] 04/03/2021 15:47:13 09/25/19 24 09/26/2023 LIPOP ROTEI N (A) lipoprotein (A) 268.8 nmol/ L <75.0 above high normal Resul ts confi rmed on dilut ion. Note: Value s great er than or equal to 75.0 nmol/ L may indic ate an indep enden t risk facto r for CHD, but must be evalu ated with cauti on when appli ed to non-C aucas anastasia popul ation s due to the influ ence of bro ic facto rs on Lp(a) acros s ethni citie s. Not Available [facility] ([facility]) [address] [facility], [place], [address], 09/26/2023 13:11:35 09/25/19 24 09/26/2023 C-KISHOR CTIVE PROTE IN, CARDI AC C-reactive protein, cardiac 0.38 mg/L 0.00-3 .00 Relat nav Risk for Futur e Cardi ovasc ular Event Low <1.00 [place] ge 1.00 - 3.00 High >3.00 Not Available [facility] ([facility]) [address] [place], [address], 09/26/2023 13:11:36 09/25/19 24 09/26/2023 LIPID PANEL cholesterol, total 169 mg/dL 100-19 9 Not Available [facility] ([facility]) [address] [place], [address], 09/26/2023 13:11:37 09/25/19 24 09/26/2023 LIPID PANEL triglyceride s 72 mg/dL 0-149 Not Available [facility] ([facility]) [address] [place], [address], 09/26/2023 13:11:37 09/25/19 24 09/26/2023 LIPID PANEL HDL cholesterol 71 mg/dL >39 Not Available [facility] ([facility]) [address] [place], [address], 09/26/2023 13:11:37 09/25/19 24 09/26/2023 LIPID PANEL VLDL cholesterol fela 14 mg/dL 5-40 Not Available [facility] ([facility]) [address] [place], [address], 09/26/2023 13:11:37 09/25/19 24 09/26/2023 LIPID PANEL LDL chol calc ([facility]) 84 mg/dL 0-99 Not Available [facility] ([facility]) [address] [facility], [place], [address], 09/26/2023 13:11:37 09/25/19 24 09/26/2023 COMP. METAB OLIC PANEL (14) glucose 93 mg/dL 70-99 Not Available [facility] ([facility]) [address] [facility], [place], [address], 09/26/2023 13:11:38 09/25/19 24 09/26/2023 COMP. METAB OLIC PANEL (14) BUN 15 mg/dL 8-27 Not Available [facility] ([facility]) [address] [facility], [address], 09/26/2023 13:11:38 09/25/19 24 09/26/2023 COMP. METAB OLIC PANEL (14) creatinine 0.66 mg/dL 0.57-1 .00 Not Available [facility] ([facility]) [address] [facility], [place], [address], 09/26/2023 13:11:38 09/25/19 24 09/26/2023 COMP. METAB OLIC PANEL (14) eGFR 99 mL/mi n/1.7 3 >59 Not Available [facility] ([facility]) [address] [facility], [place], [address], 09/26/2023 13:11:38 09/25/19 24 09/26/2023 COMP. METAB OLIC PANEL (14) BUN/creatini ne ratio 23 12-28 Not Available [facility] ([facility]) [address] [facility], [place], [address], 09/26/2023 13:11:38 09/25/19 24 09/26/2023 COMP. METAB OLIC PANEL (14) sodium 142 mmol/ L 134-14 4 Not Available [facility] ([facility]) [address] [facility], [address], 09/26/2023 13:11:38 09/25/19 24 09/26/2023 COMP. METAB OLIC PANEL (14) potassium 4.5 mmol/ L 3.5-5. 2 Not Available [facility] ([facility]) [address] [facility], [place], [address], 09/26/2023 13:11:38 09/25/19 24 09/26/2023 COMP. METAB OLIC PANEL (14) chloride 103 mmol/ L 96-106 Not Available [facility] ([facility]) [address] [facility], [place], [address], 09/26/2023 13:11:38 09/25/19 24 09/26/2023 COMP. METAB OLIC PANEL (14) carbon dioxide, total 24 mmol/ L 20-29 Not Available [facility] ([facility]) [address] [facility], [place], [address], 09/26/2023 13:11:38 09/25/19 24 09/26/2023 COMP. METAB OLIC PANEL (14) calcium 10.0 mg/dL 8.7-10 .3 Not Available [facility] ([facility]) [address] [facility], [place], [address], 09/26/2023 13:11:38 09/25/19 24 09/26/2023 COMP. METAB OLIC PANEL (14) protein, total 7.0 g/dL 6.0-8. 5 Not Available [facility] ([facility]) [address] [facility], [place], [address], 09/26/2023 13:11:38 09/25/19 24 09/26/2023 COMP. METAB OLIC PANEL (14) albumin 4.7 g/dL 3.9-4. 9 Not Available [facility] ([facility]) [address] [facility], [place], [address], 09/26/2023 13:11:38 09/25/19 24 09/26/2023 COMP. METAB OLIC PANEL (14) globulin, total 2.3 g/dL 1.5-4. 5 Not Available [facility] ([facility]) [address] [place], [address], 09/26/2023 13:11:38 09/25/19 24 09/26/2023 COMP. METAB OLIC PANEL (14) A/G ratio 2.0 1.2-2. 2 Not Available [facility] ([facility]) [address] [facility], [place], [address], 09/26/2023 13:11:38 09/25/19 24 09/26/2023 COMP. METAB OLIC PANEL (14) bilirubin, total 0.4 mg/dL 0.0-1. 2 Not Available [facility] ([facility]) [address] [place], [address], 09/26/2023 13:11:38 09/25/19 24 09/26/2023 COMP. METAB OLIC PANEL (14) alkaline phosphatase 57 IU/L 44-121 Not Available [facility] ([facility]) [address] [place], [address], 09/26/2023 13:11:38 09/25/19 24 09/26/2023 COMP. METAB OLIC PANEL (14) AST (SGOT) 17 IU/L 0-40 Not Available [facility] ([facility]) [address] [place], [address], 09/26/2023 13:11:38 09/25/19 24 09/26/2023 COMP. METAB OLIC PANEL (14) ALT (SGPT) 15 IU/L 0-32 Not Available [facility] ([facility]) [address] [place], [address], 09/26/2023 13:11:38 09/25/19 24 09/26/2023 TSH TSH 1.420 uIU/m L 0.450- 4.500 Not Available [facility] ([facility]) [address] [facility], [place], [address], 09/26/2023 13:11:38 09/25/19 24 09/26/2023 CBC WITH DIFFE RENTI AL/PL ATELE T WBC 5.2 x10e3 /uL 3.4-10 .8 Not Available [facility] ([facility]) [address] [facility], [place], [address], 09/26/2023 13:11:39 09/25/19 24 09/26/2023 CBC WITH DIFFE RENTI AL/PL ATELE T RBC 4.45 x10e6 /uL 3.77-5 .28 Not Available [facility] ([facility]) [address] [facility], [place], [address], 09/26/2023 13:11:39 09/25/19 24 09/26/2023 CBC WITH DIFFE RENTI AL/PL ATELE T hemoglobin 13.2 g/dL 11.1-1 5.9 Not Available [facility] ([facility]) [address] [facility], [place], [address], 09/26/2023 13:11:39 09/25/19 24 09/26/2023 CBC WITH DIFFE RENTI AL/PL ATELE T hematocrit 40.7 % 34.0-4 6.6 Not Available [facility] ([facility]) [address] [facility], [place], [address], 09/26/2023 13:11:39 09/25/19 24 09/26/2023 CBC WITH DIFFE RENTI AL/PL ATELE T MCV 92 fL 79-97 Not Available [facility] ([facility]) [address] [place], [address], 09/26/2023 13:11:39 09/25/19 24 09/26/2023 CBC WITH DIFFE RENTI AL/PL ATELE T MCH 29.7 pg 26.6-3 3.0 Not Available [facility] ([facility]) [address] [facility], [place], [address], 09/26/2023 13:11:39 09/25/19 24 09/26/2023 CBC WITH DIFFE RENTI AL/PL ATELE T MCHC 32.4 g/dL 31.5-3 5.7 Not Available [facility] ([facility]) [address] [facility], [place], [address], 09/26/2023 13:11:39 09/25/19 24 09/26/2023 CBC WITH DIFFE RENTI AL/PL ATELE T RDW 12.8 % 11.7-1 5.4 Not Available [facility] ([facility]) [address] [facility], [place], [address], 09/26/2023 13:11:39 09/25/19 24 09/26/2023 CBC WITH DIFFE RENTI AL/PL ATELE T platelets 243 x10e3 /uL 150-45 0 Not Available [facility] ([facility]) [address] [facility], [place], [address], 09/26/2023 13:11:39 09/25/19 24 09/26/2023 CBC WITH DIFFE RENTI AL/PL ATELE T neutrophils 66 % notest ab. Not Available [facility] ([facility]) [address] [facility], [place], [address], 09/26/2023 13:11:39 09/25/19 24 09/26/2023 CBC WITH DIFFE RENTI AL/PL ATELE T lymphs 25 % notest ab. Not Available [facility] ([facility]) [address] [place], [address], 09/26/2023 13:11:39 09/25/19 24 09/26/2023 CBC WITH DIFFE RENTI AL/PL ATELE T monocytes 6 % notest ab. Not Available [facility] ([facility]) [address] [facility], [place], [address], 09/26/2023 13:11:39 09/25/19 24 09/26/2023 CBC WITH DIFFE RENTI AL/PL ATELE T eos 3 % notest ab. Not Available [facility] ([facility]) [address] [facility], [place], [address], 09/26/2023 13:11:39 09/25/19 24 09/26/2023 CBC WITH DIFFE RENTI AL/PL ATELE T basos 0 % notest ab. Not Available [facility] ([facility]) [address] [facility], [place], [address], 09/26/2023 13:11:39 09/25/19 24 09/26/2023 CBC WITH DIFFE RENTI AL/PL ATELE T neutrophils (absolute) 3.5 x10e3 /uL 1.4-7. 0 Not Available [facility] ([facility]) [address] [facility], [place], [address], 09/26/2023 13:11:39 09/25/19 24 09/26/2023 CBC WITH DIFFE RENTI AL/PL ATELE T lymphs (absolute) 1.3 x10e3 /uL 0.7-3. 1 Not Available [facility] ([facility]) [address] [facility], [place], [address], 09/26/2023 13:11:39 09/25/19 24 09/26/2023 CBC WITH DIFFE RENTI AL/PL ATELE T monocytes(ab solute) 0.3 x10e3 /uL 0.1-0. 9 Not Available [facility] ([facility]) [address] [place], [address], 09/26/2023 13:11:39 09/25/19 24 09/26/2023 CBC WITH DIFFE RENTI AL/PL ATELE T eos (absolute) 0.1 x10e3 /uL 0.0-0. 4 Not Available [facility] ([facility]) [address] [facility], [place], [address], 09/26/2023 13:11:39 09/25/19 24 09/26/2023 CBC WITH DIFFE RENTI AL/PL ATELE T baso (absolute) 0.0 x10e3 /uL 0.0-0. 2 Not Available [facility] ([facility]) [address] [place], [address], 09/26/2023 13:11:39 09/25/19 24 09/26/2023 CBC WITH DIFFE RENTI AL/PL ATELE T immature granulocytes 0 % notest ab. Not Available [facility] ([facility]) [address] [facility], [place], [address], 09/26/2023 13:11:39 09/25/19 24 09/26/2023 CBC WITH DIFFE RENTI AL/PL ATELE T immature grans (abs) 0.0 x10e3 /uL 0.0-0. 1 Not Available [facility] ([facility]) [address] [place], [address], 09/26/2023 13:11:39 09/25/19 24 09/26/2023 TRIIO DOTHY MATTHIEU E (T3), FREE triiodothyro nine (T3), free 2.5 pg/mL 2.0-4. 4 Not Available [facility] ([facility]) [address] [place], [address], 09/26/2023 13:11:40 09/25/19 24 09/26/2023 T4,FR EE(DI RECT) T4,free(dire ct) 1.76 NG/dL 0.82-1 .77 Not Available [facility] ([facility]) [address] [place], [address], 09/26/2023 13:11:41 07/21/19 25 07/22/2024 LIPID PANEL cholesterol, total 179 mg/dL 100-19 9 Not Available [facility] ([facility]) [address] [place], [address], 07/22/2024 06:18:09 07/21/19 25 07/22/2024 LIPID PANEL triglyceride s 67 mg/dL 0-149 Not Available [facility] ([facility]) [address] [place], [address], 07/22/2024 06:18:09 07/21/19 25 07/22/2024 LIPID PANEL HDL cholesterol 88 mg/dL >39 Not Available [facility] ([facility]) [address] [place], [address], 07/22/2024 06:18:09 07/21/19 25 07/22/2024 LIPID PANEL VLDL cholesterol fela 13 mg/dL 5-40 Not Available [facility] ([facility]) [address] [place], [address], 07/22/2024 06:18:09 07/21/19 25 07/22/2024 LIPID PANEL LDL chol calc ([facility]) 78 mg/dL 0-99 Not Available [facility] ([facility]) [address] [place], [address], 07/22/2024 06:18:09 07/21/19 25 07/22/2024 COMP. METAB OLIC PANEL (14) glucose 96 mg/dL 70-99 Not Available [facility] ([facility]) [address] [place], [address], 07/22/2024 06:18:10 07/21/19 25 07/22/2024 COMP. METAB OLIC PANEL (14) BUN 13 mg/dL 8-27 Not Available [facility] ([facility]) [address] [place], [address], 07/22/2024 06:18:10 07/21/19 25 07/22/2024 COMP. METAB OLIC PANEL (14) creatinine 0.68 mg/dL 0.57-1 .00 Not Available [facility] ([facility]) [address] [facility] [place], [address], 07/22/2024 06:18:10 07/21/19 25 07/22/2024 COMP. METAB OLIC PANEL (14) eGFR 98 mL/mi n/1.7 3 >59 Not Available [facility] ([facility]) [address] [facility] [place], [address], 07/22/2024 06:18:10 07/21/19 25 07/22/2024 COMP. METAB OLIC PANEL (14) BUN/creatini ne ratio 19 12-28 Not Available [facility] ([facility]) [address] [facility], [place], [address], 07/22/2024 06:18:10 07/21/19 25 07/22/2024 COMP. METAB OLIC PANEL (14) sodium 141 mmol/ L 134-14 4 Not Available [facility] ([facility]) [address] [facility] [place], [address], 07/22/2024 06:18:10 07/21/19 25 07/22/2024 COMP. METAB OLIC PANEL (14) potassium 4.9 mmol/ L 3.5-5. 2 Not Available [facility] ([facility]) [address] [facility] [place], [address], 07/22/2024 06:18:10 07/21/19 25 07/22/2024 COMP. METAB OLIC PANEL (14) chloride 104 mmol/ L 96-106 Not Available [facility] ([facility]) [address] [facility] [place], [address], 07/22/2024 06:18:10 07/21/19 25 07/22/2024 COMP. METAB OLIC PANEL (14) carbon dioxide, total 24 mmol/ L 20-29 Not Available [facility] ([facility]) [address], [place], [address], 07/22/2024 06:18:10 07/21/19 25 07/22/2024 COMP. METAB OLIC PANEL (14) calcium 10.0 mg/dL 8.7-10 .3 Not Available [facility] ([facility]) [address], [place], [address], 07/22/2024 06:18:10 07/21/19 25 07/22/2024 COMP. METAB OLIC PANEL (14) protein, total 6.9 g/dL 6.0-8. 5 Not Available [facility] ([facility]) [address] [place], [address], 07/22/2024 06:18:10 07/21/19 25 07/22/2024 COMP. METAB OLIC PANEL (14) albumin 4.8 g/dL 3.9-4. 9 Not Available [facility] ([facility]) [address], [place], [address], 07/22/2024 06:18:10 07/21/19 25 07/22/2024 COMP. METAB OLIC PANEL (14) globulin, total 2.1 g/dL 1.5-4. 5 Not Available [facility] ([facility] [address] [facility] [place], [address], 07/22/2024 06:18:10 07/21/19 25 07/22/2024 COMP. METAB OLIC PANEL (14) bilirubin, total 0.4 mg/dL 0.0-1. 2 Not Available [facility] ([facility]) [address] [place], [address], 07/22/2024 06:18:10 07/21/19 25 07/22/2024 COMP. METAB OLIC PANEL (14) alkaline phosphatase 50 IU/L 44-121 Not Available [facility] ([facility]) [address] [facility], [place], [address], 07/22/2024 06:18:10 07/21/19 25 07/22/2024 COMP. METAB OLIC PANEL (14) AST (SGOT) 23 IU/L 0-40 Not Available [facility] ([facility]) [address], [place], [address], 07/22/2024 06:18:10 07/21/19 25 07/22/2024 COMP. METAB OLIC PANEL (14) ALT (SGPT) 14 IU/L 0-32 Not Available [facility] ([facility]) [address], [place], [address], 07/22/2024 06:18:10 07/21/19 25 07/22/2024 TSH TSH 0.844 uIU/m L 0.450- 4.500 Not Available [facility] ([facility]) [address] [facility], [place], [address], 07/22/2024 06:18:11 07/21/19 25 07/21/2024 CBC WITH DIFFE RENTI AL/PL ATELE T WBC 5.3 x10e3 /uL 3.4-10 .8 Not Available [facility] ([facility]) [address] [facility] [place], [address], 07/22/2024 06:18:12 07/21/19 25 07/21/2024 CBC WITH DIFFE RENTI AL/PL ATELE T RBC 4.57 x10e6 /uL 3.77-5 .28 Not Available [facility] ([facility]) [address] [facility] [place], [address], 07/22/2024 06:18:12 07/21/19 25 07/21/2024 CBC WITH DIFFE RENTI AL/PL ATELE T hemoglobin 13.2 g/dL 11.1-1 5.9 Not Available [facility] ([facility]) [address] [facility], [place], [address], 07/22/2024 06:18:12 07/21/19 25 07/21/2024 CBC WITH DIFFE RENTI AL/PL ATELE T hematocrit 41.7 % 34.0-4 6.6 Not Available [facility] ([facility]) [address] [facility], [place], [address], 07/22/2024 06:18:12 07/21/19 25 07/21/2024 CBC WITH DIFFE RENTI AL/PL ATELE T MCV 91 fL 79-97 Not Available [facility] ([facility]) [address] [facility], [place], [address], 07/22/2024 06:18:12 07/21/19 25 07/21/2024 CBC WITH DIFFE RENTI AL/PL ATELE T MCH 28.9 pg 26.6-3 3.0 Not Available [facility] ([facility]) [address] [facility], [place], [address], 07/22/2024 06:18:12 07/21/19 25 07/21/2024 CBC WITH DIFFE RENTI AL/PL ATELE T MCHC 31.7 g/dL 31.5-3 5.7 Not Available [facility] ([facility]) [address] [facility], [place], [address], 07/22/2024 06:18:12 07/21/19 25 07/21/2024 CBC WITH DIFFE RENTI AL/PL ATELE T RDW 12.4 % 11.7-1 5.4 Not Available [facility] ([facility]) [address] [facility], [place], [address], 07/22/2024 06:18:12 07/21/19 25 07/21/2024 CBC WITH DIFFE RENTI AL/PL ATELE T platelets 241 x10e3 /uL 150-45 0 Not Available [facility] ([facility]) [address] [facility], [place], [address], 07/22/2024 06:18:12 07/21/19 25 07/21/2024 CBC WITH DIFFE RENTI AL/PL ATELE T neutrophils 52 % notest ab. Not Available [facility] ([facility]) [address] [facility], [place], [address], 07/22/2024 06:18:12 07/21/19 25 07/21/2024 CBC WITH DIFFE RENTI AL/PL ATELE T lymphs 36 % notest ab. Not Available [facility] ([facility]) [address] [facility], [place], [address], 07/22/2024 06:18:12 07/21/19 25 07/21/2024 CBC WITH DIFFE RENTI AL/PL ATELE T monocytes 6 % notest ab. Not Available [facility] ([facility]) [address] [facility], [place], [address], 07/22/2024 06:18:12 07/21/19 25 07/21/2024 CBC WITH DIFFE RENTI AL/PL ATELE T eos 6 % notest ab. Not Available [facility] ([facility]) [address] [facility], [place], [address], 07/22/2024 06:18:12 07/21/19 25 07/21/2024 CBC WITH DIFFE RENTI AL/PL ATELE T basos 0 % notest ab. Not Available [facility] ([facility]) [address] [facility], [place], [address], 07/22/2024 06:18:12 07/21/19 25 07/21/2024 CBC WITH DIFFE RENTI AL/PL ATELE T neutrophils (absolute) 2.8 x10e3 /uL 1.4-7. 0 Not Available [facility] ([facility]) [address] [facility], [place], [address], 07/22/2024 06:18:12 07/21/19 25 07/21/2024 CBC WITH DIFFE RENTI AL/PL ATELE T lymphs (absolute) 1.9 x10e3 /uL 0.7-3. 1 Not Available [facility] ([facility]) [address] [facility], [place], [address], 07/22/2024 06:18:12 07/21/19 25 07/21/2024 CBC WITH DIFFE RENTI AL/PL ATELE T monocytes(ab solute) 0.3 x10e3 /uL 0.1-0. 9 Not Available [facility] ([facility]) [address] [facility], [place], [address], 07/22/2024 06:18:12 07/21/19 25 07/21/2024 CBC WITH DIFFE RENTI AL/PL ATELE T eos (absolute) 0.3 x10e3 /uL 0.0-0. 4 Not Available [facility] ([facility]) [address] [facility], [place], [address], 07/22/2024 06:18:12 07/21/19 25 07/21/2024 CBC WITH DIFFE RENTI AL/PL ATELE T baso (absolute) 0.0 x10e3 /uL 0.0-0. 2 Not Available [facility] ([facility]) [address] [place], [address], 07/22/2024 06:18:12 07/21/19 25 07/21/2024 CBC WITH DIFFE RENTI AL/PL ATELE T immature granulocytes 0 % notest ab. Not Available [facility] ([facility]) [address] [place], [address], 07/22/2024 06:18:12 07/21/19 25 07/21/2024 CBC WITH DIFFE RENTI AL/PL ATELE T immature grans (abs) 0.0 x10e3 /uL 0.0-0. 1 Not Available [facility] ([facility]) [address] [place], [address], 07/22/2024 06:18:12 07/21/1907/22/2024 TRIIO DOTHY MATTHIEU E (T3), FREE triiodothyro nine (T3), free 2.4 pg/mL 2.0-4. 4 Not Available [facility] ([facility]) [address] [facility], [place], [address], 07/22/2024 06:18:13 07/21/1907/22/2024 T4,FR EE(DI RECT) T4,free(dire ct) 1.70 NG/dL 0.82-1 .77 Not Available [facility] ([facility]) [address] [facility], [place], [address], 07/22/2024 06:18:14 06/07/2006/07/2021 MAMMO , scree mahesh, bilat eral No observ ation record ed. [facility] [address], [place], [address], 06/23/2021 06:44:05 01/22/20 24 09/08/2021 colon oscop y proce dure (PROC ) No observ ation record ed. BARCODE Not Available 2023 09:43:37 07/25/1907/25/2024 XR, foot No observ ation record ed. [facility] [address], [place], [address], 07/28/2024 16:18:08 Result Notes None recorded. Problems Name Problem SNOMED Code Status Onset Date Resolution Date Notes Provider Name and Address Organization Details Recorded Time Fibrocystic disease of breast 08901871 Active 2018 Margarito box, [place] - [facility] 9 10:43:20 Hypothyroidism 66627319 Active 2018 Marg[place] box, [place] - [facility] 9 10:43:34 Menopausal syndrome 552857120 Active 2018 Margarito box [place] - [facility] 9 11:12:26 Hyperlipidemia 07599587 Active 2023 Yasemin Chow MD Attn: Adarsh hallman,[address] , [place], [address], [facility] 4 22:22:01 Problem Notes None recorded. Procedures Surgical History Date Name Laterality Status Provider Name and Address Organization Details Recorded Time 04/03/20 21 Date of Last Pap Smear completed Louise Palacios MA [facility] 04/03/2021 15:43:21 06/04/20 20 Most Recent Mammogram completed Louise Palacios MA [facility] 04/03/2021 15:43:08 Colposcopy completed Mar Turk MA [facility] 04/05/2016 10:38:52 Tonsillectomy completed Mar Turk MA [facility] 04/05/2016 10:38:52 Tubal Ligation completed Mar Turk MA [facility] 04/05/2016 10:38:52 Imaging Results None recorded. Procedure Notes None recorded. Medical Equipment None Reported. Allergies Allergen ID Allergen Name Allergen Category Reaction Reaction Severity Criticality Documentation Date Start Date Code Code System Note Provider Name and Address Organization Details Recorded Time 32604 Substance with sulfonami de structure and antibacte rial mechanism of action (substanc e) medicatio n rash moderate Not available 04/05/2016 [id number] SNOMED Mar Turk [place] null, [place] - [facility] 6 10:38:52 Medications Name Sig Start Date Stop Date Status Note LastModified by Organization Details LastModified Time multivitamin tablet Take 1 tablet every day by oral route. 09/24 completed Not Available Not Available Not Available fluconazole 150 mg tablet TAKE 1 TABLET BY MOUTH ONE DOSE 04/03 completed Not Available Not Available Not Available levothyroxine 75 mcg tablet TAKE 1 TABLET BY MOUTH EVERY DAY 2024 active Not Available Not Available Not Avai lable etodolac 400 mg tablet TAKE 1 TABLET BY MOUTH TWICE A DAY WITH MEALS 04/03 completed Not Available Not Available Not Available scopolamine 1 mg over 3 days transdermal patch APPLY 1 PATCH TO THE SKIN BEHIND THE EAR AND LEAVE ON FOR 3 DAYS FOR NAUSEA/ VOMITIN G. active Not Available Not Available No t Available methylprednis olone 4 mg tablets in a dose pack 09/04 completed Not Available Not Available Not Available amoxicillin 875 mg-potassium clavulanate 125 mg tablet 09/04 completed Not Available Not Available Not Available rosuvastatin 10 mg tablet TAKE 1 TABLET BY MOUTH EVERY DAY 2024 active Not Available Not Available Not Avai lable calcium 600 mg (as carbonate)-vi tamin D3 10 mcg (400 unit) tablet Take 1 tablet( s) twice a day by oral route. 09/24 completed Not Available Not Available Not Available estradiol-nor ethindrone acet 0.5 mg-0.1 mg tablet TAKE 1 TABLET BY MOUTH EVERY DAY 09/24 completed Not Available Not Available Not Available Mimvey 1 mg-0.5 mg tablet TAKE 1 TABLET BY MOUTH EVERY DAY 09/24 completed Not Available Not Available Not Available calcium 600 mg (as carbonate)-vi tamin D3 20 mcg (800 unit) tablet TAKE 1 TABLET BY MOUTH TWICE A DAY 04/03 completed Not Available Not Available Not Available Duavee 0.45 mg-20 mg tablet Take 1 tablet every day by oral route. 01/25 completed Not Available Not Available Not Available Flucelvax Quad 9306-5769 (PF) 60 mcg (15 mcg x 4)/0.5 mL IM syringe 10/15 completed Not Available Not Available Not Available Flucelvax Quad (PF) 60 mcg (15 mcg x 4)/0.5 mL IM syringe 10/15 completed Not Available Not Available Not Available Daily-Kate (with folic acid) 400 mcg tablet 09/24 completed Not Available Not Available Not Available Vitals Date Recorded Body height Body mass index (BMI) Body weight Heart rate Oxygen saturation Oxygen saturation in Arterial blood by Pulse oximetry Systolic blood pressure Diastolic blood pressure Provider Name and Address Organization Details Last Updated DateTime 5 158.75 cm 22.4 kg/m2 33858.5 3 g 65 /min 99 % 99 % 114 mm[Hg] 68 mm[Hg] Georgina Seco, [place] - [facility] 5 10:06:47 Date Recorded Body height Body mass index (BMI) Body weight Heart rate Body temperature Oxygen saturation Oxygen saturation in Arterial blood by Pulse oximetry Systolic blood pressure Diastolic blood pressure Provider Name and Address Organization Details Last Updated DateTime 4 158.75 cm 24.7 kg/m2 97609.1 5 g 65 /min 97.9 [degF] 98 % 98 % 126 mm[Hg] 82 mm[Hg] Caro Meyers MA [facility] 4 09:59:30 Date Recorded Body height Body mass index (BMI) Body weight Heart rate Oxygen saturation Oxygen saturation in Arterial blood by Pulse oximetry Systolic blood pressure Diastolic blood pressure Provider Name and Address Organization Details Last Updated DateTime 4 158.75 cm 23.1 kg/m2 22364.9 g 62 /min 100 % 100 % 122 mm[Hg] 82 mm[Hg] Luis Mancuso MA [facility] 4 10:09:05 Date Recorded Body height Body mass index (BMI) Body weight Systolic blood pressure Diastolic blood pressure Provider Name and Address Organization Details Last Updated DateTime 04/03/2021 158.75 cm 29.7 kg/m2 86717.74 g 140 mm[Hg] 90 mm[Hg] Louise Palacios MA [facility] 1 15:50:19 Social History Question Answer Notes LastModified by Organizat ion Details LastModified Time Tobacco Smoking Status Former Smoker Mar Turk MA [facility] 04/05/2016 10:38:52 Do You Have An Advance Directive? No Information not available 04/05/2016 Are You Blind Or Do You Have Difficulty Seeing? No Information not available 09/25/2023 Is Blood Transfusion Acceptable In An Emergency? Yes Information not available 04/05/2016 What Is Your Level Of Caffeine Consumption? Moderate Information not available 04/05/2016 How Much Tobacco Do You Chew? None Information not available 04/05/2016 In The 14 Days Before Symptom Onset, Have You Had Close Contact With A Laboratory-confir med COVID-19 While That Case Was Ill? No Information not available 07/21/2024 In The 14 Days Before Symptom Onset, Have You Had Close Contact With A Person Who Is Under Investigation For COVID-19 While That Person Was Ill? No Information not available 07/21/2024 Have You Been To An Area Known To Be High Risk For COVID-19? No Information not available 07/21/2024 Are You Deaf Or Do You Have Serious Difficulty Hearing? No Information not available 09/25/2023 What Type Of Diet Are You Following? REGULAR Information not available 04/05/2016 Education 12 Information no t available 04/05/2016 Live Alone Or With Others? With Others Information not available 04/05/2016 What Was The Date Of Your Most Recent Tobacco Screening? 07/21/2024 Information not available 07/21/2024 How Many Children Do You Have? 1 Information not available 04/05/2016 Performs Monthly Self-breast Exam? Yes Information no t available 04/05/2016 Do You Use Protection During Sex? No Information not available 04/05/2016 What Is Your Relationship Status? Information not available 04/05/2016 Do You Use Your Seat Belt Or Car Seat Routinely? Yes Information not available 09/25/2023 Seat Belts Used Routinely Yes Information not available 04/05/2016 Are You Sexually Active? Yes Information not available 04/05/2016 Do You Have Smoke And Carbon Monoxide Detectors In Your Home? Yes Information not available 09/25/2023 At What Age Did You Start Smoking Tobacco? 17 Information not available 04/05/2016 How Much Tobacco Do You Smoke? 1 PPD Information not available 04/05/2016 General Stress Level Low Information not available 04/05/2016 Do You Use Sunscreen Routinely? Yes When Out In Sun Information not available 04/05/2016 Has Tobacco Cessation Counseling Been Provided? Yes Information not available 09/25/2023 On What Date Was Tobacco Cessation Counseling Provided? 07/21/2024 Information not available 07/21/2024 How Many Years Have You Smoked Tobacco? 5 Information not available 04/05/2016 Sex: Female Functional Status Question Answer Note LastModified by Organizat ion Details LastModified Time Do you use any illicit or recreational drugs? No Information not available 04/03/2021 Do you or have you ever used any other forms of tobacco or nicotine? No Information not available 04/03/2021 What is your level of alcohol consumption? Occasional Information not available 04/05/2016 Do you or have you ever used smokeless tobacco? Never used smokeless tobacco Information not available 01/26/2020 Are you currently employed? Yes Information not available 04/05/2016 Are you able to care for yourself? 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 Never used electronic cigarettes Information not available 01/26/2020 What is your exercise level? Moderate Information not available 04/05/2016 Mental Status None recorded. Family History Relationship Description Onset Age of this Age Resolved Age Notes LastModified by Organization Details LastModified Time Mother Harmful pattern of use of alcohol [email or web address] Not available 04/07 08:47:25 Mother Diabetes mellitus [email or web address] Not available 04/07 08:47:25 Mother Heart disease [email or web address] Not available 04/07 08:47:25 Mother Hypercholest erolemia mwasserman Not available 04/07 08:47:25 Mother Hypertensive disorder mwasserman Not available 04/07 08:47:25 Mother Malignant neoplasm of lung 83 Not available 2017 10:08:56 Father Malignant neoplasm of lung [email or web address] Not available 04/07 08:47:25 Father Harmful pattern of use of alcohol mwasserman Not available 04/07 08:47:25 Brother Hypercholest erolemia mwasserman Not available 04/07 08:47:25 Brother Hypertensive disorder mwasserman Not available 04/07 08:47:25 Brother Disorder of thyroid gland mwasserman Not available 04/07 08:47:25 Sister Malignant tumor of cervix mwasserman Not available 04/07 08:47:25 Medical History Condition Response Other N High Blood Pressure N Breast Cancer N Thyroid Problems Y Kidney or Bladder Problems N GI Problems N Depression N Blood Clots N Lung Disease N Acne N Breast Problem N Eating Disorder N Anemia N Anesthesia Complications N Headaches/Migraines N Anxiety Disorder N Diabetes N Ovarian Cancer N Muscle, Joint, or Bone Problems N Blood Transfusions N Seizures/Epilepsy N Polyps N Infertility N Acid Reflux (GERD) Y Cancer N Abuse/Domestic Violence N Asthma N Endometriosis N High Cholesterol Y Hepatitis N Liver Disease N Heart Disease N Pre-Eclampsia N Osteoporosis N Gynecological History Statement/Question Response Abnormal Pap Y On BCP's at Conception? N STIs/STDs Y HPV Vaccine N Most Recent Mammogram 06/04/2020 Age at Menarche 15 Current Control Method Tubal Ligat ion Age at First Child 32 If Post Menopausal, Age at Menopause 50 Sexually Active? Y Menses Monthly No Date of Last Pap Smear 04/03/2021 Sexual Problems? N LMP Approximate Obstetrics History GPAL:G 1 P 1 0 0 1 Type Value Multiple Births 0 Full Term 1 Induced 0 Spontaneous 0 Premature 0 Living 1 Ectopics 0 Total 1 Immunizations Vaccine Type Date Status Note Provider Nam e and Address Organization Details Recorded Time Influenza, split virus, quadrivalent, preservative 8 completed LUPE [place], [place] - [facility] 07/21/2024 10:19:10 Influenza, split virus, quadrivalent, preservative 7 completed LU[place] [facility] 07/21/2024 10:19:10 Influenza, MDCK, quadrivalent, PF 2 completed Ishan Gonsales [place], [place] [facility] 07/21/2024 10:19:10 Influenza, MDCK, quadrivalent, PF 3 completed Ishan [place] [facility] 07/21/2024 10:19:10 COVID-19, mRNA, LNP-S, PF, 30 mcg/0.3 mL dose 1 completed LU[place] [facility] 07/21/2024 10:19:10 COVID-19, mRNA, LNP-S, PF, 30 mcg/0.3 mL dose 1 completed [place] [facility] 07/21/2024 10:19:10 COVID-19, mRNA, LNP-S, PF, 30 mcg/0.3 mL dose 1 completed Ishan [place] [facility] 07/21/2024 10:19:10 COVID-19, mRNA, LNP-S, bivalent, PF, 30 mcg/0.3 mL dose 2 completed LU[place] [facility] 07/21/2024 10:19:10 COVID-19, mRNA, LNP-S, PF, dago-sucrose, 30 mcg/0.3 mL 3 completed LU[place] [facility] 07/21/2024 10:19:10 Influenza, split virus, trivalent, preservative 9 completed Ishan [place] [facility] 07/21/2024 10:19:10 Influenza, split virus, trivalent, preservative 4 completed Ishan [place] [facility] 07/21/2024 10:19:10 Influenza, split virus, trivalent, preservative 3 completed Ishan [place] [facility] 07/21/2024 10:19:10 Influenza, split virus, trivalent, PF 6 completed Ishan [place] [facility] 07/21/2024 10:19:10 Influenza, split virus, trivalent, PF 5 completed Ishan [place] [facility] 07/21/2024 10:19:10 Influenza, split virus, quadrivalent, PF 1 completed Ishan [place] [facility] 07/21/2024 10:19:10 pneumococcal polysaccharide PPV23 5 completed Yasemin Chow MD Attn: Accounting,[address] [place], [address], [place] [facility] 07/26/2024 21:11:04 Past Encounters Encounter ID Performer Location Encounter Start Date Encounter Closed Date Diagnosis/Indication Diagnosis SNOMED-CT Code Diagnosis ICD10 Code Diagnosis Note [id number] MD Krystyna Raya (SENIOR TALENT ACQUISITION SPECIALIST) [address] [place] [phone] 04/05/2016 10:08:22 04/07/2016 08:53:39 Gynecologic examination [id number] Z01.411 Screening mammography 24 [id number] Z12.31 [id number] MD Krystyna Raya (SENIOR TALENT ACQUISITION SPECIALIST) [address] [place] [address] [phone] 0 09/04/2017 09:44:38 09/04/2017 11:10:31 Gynecologic examination [id number] Z01.411 Screening mammography 24 689564 Z12.31 Screening for osteoporosis 855260885 Z13.820 Family noé nning surveillance 131557558 Z30.09 Candidiasis of vagina 72 626187 B37.3 [id number] MD Krystyna Raya (SENIOR TALENT ACQUISITION SPECIALIST) [address] [place] [address] [phone] 0 10/15/2018 10:09:41 10/15/2018 16:22:39 Screening mammography 88096720 Z12.31 Fibrocysti c disease of breast 85087548 N60.19 Menopausal syndrome 1237 99618 N95.9 Hypothyroidism 45688540 E03.9 [id number] MD Krystyna Raya (SENIOR TALENT ACQUISITION SPECIALIST) [address] [place] [address] [phone] 0 01/26/2020 09:59:34 01/27/2020 11:41:23 Fibrocystic disease of breast 96009113 N60.19 Menopausal syndrome 1237 19292 N95.9 Screening mammography 24 396226 Z12.31 Gynecologi c examination 31756070 Z01.620 [id number] MD Krystyna Raya (SENIOR TALENT ACQUISITION SPECIALIST) [address] [place] [address] [id number] 0 12/28/2020 07:56:12 12/29/2020 14:27:50 Screening mammography 18195607 Z12.31 Menopausal syndrome 1237 35191 N95.9 Family noé nning surveillance 122720094 Z30.09 [id number] MD Krystyna Raya (SENIOR TALENT ACQUISITION SPECIALIST) [address] [place] [address] [phone] 0 04/03/2021 15:28:37 04/04/2021 10:56:07 Screening mammography 00130408 Z12.31 Menopausal syndrome 1237 91913 N95.9 Gynecologi c examination 66657632 Z01.419 Z11.51 Exposure t o sexually transmissible disorder 764110241 Z20.2 [id number] Yasemin Chow MD [facility] (Adult Med) [address] [place] [address] [id number] 0 09/25/2023 09:42:52 09/25/2023 10:47:57 Hypothyroidism 16121410 E03.9 Long-term drug therapy 583942030 Z79.899 Hyperlipidemia 31146274 E78.5 [id number] Yasemin Chow MD [facility] (Adult Med) [address] [place] [address] [phone] 0 01/21/2024 09:53:32 01/21/2024 10:35:58 Hypothyroidism 35497865 E03.9 Hyperlipidemia 34162264 E78.5 Constipation 34881571 K5 9.00 [id number] Yasemin Chow MD [facility] (Adult Med) [address] [place] [address] [phone] 0 07/21/2024 09:45:25 07/21/2024 11:00:28 Body mass index 20-24 - normal [id number] Z68.22 Administra tion of pneumococcal vaccine 79315256 Z23 Hyperlipidemia 55746980 E78.5 Hypothyroidism 00877513 E03.9 Pain in right foot 80580 16598 24243 M79.671 Health Concerns Section Related Observation LastModified by Organization Detai ls LastModified Time None Recorded Concern Status LastModified by Organization Details LastModified Time None Recorded Advance Directives Directive N: Payers Encounter Date Sequence Insurance Name Policy Number Policy Yee Covered Member ID Yee Member ID Guarantor Name 12/28/2020 1 [employer] [id number] 0 Pebbles Rashi [id number] Pebbles Rashi 04/03/2021 1 [place] [id number] 0 Pebbles Rashi [id number] Pebbles Rashi 09/25/2023 1 [place] [id number] 0 Pebbles Coronaught [id number] Pebbles Rashi 01/21/2024 1 [place] [id number] 0 Pebbles Rashi [id number] Pebbles Rashi 07/21/2024 1 [place] [id number] 0 Pebbles Rashi [id number] Pebbles Rashi Notes Date Note Type Note Provider Name and Address Organization Details Recorded Time 1 text/html Annual [employer] Post-MenopausalReported bypatient.Menopausal Symptoms:normal vaginal lubrication;hot flashes;insomnia due to night sweats Vaginal Bleeding:history of menopause having occurred; no history of post menopausal bleeding Urinary Symptoms:no hematuria; no incontinence; no nocturia; no urinary frequency Vulva:no genital lesion; no vulvar atrophy Vagina:normal vaginal discharge; no vaginal atrophy Breast:no breast lump; no nipple discharge; no breast pain Sexual Complaints:no sexual complaints Psychological Symptoms:no depression; no anxiety Preventive Measures:encourage regular mammograms starting age 40; encourage self breast examination; encourage regular exercise; encourage no tobacco use; needs to schedule mammogram 59 yo F with history of tubal ligation 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 No complaints today, reports a few short hot flashes per day since she has stopped taking hormone therapy. Symptoms are manageable. Margarito box, [place] - [facility] 12/28/2020 17:47:59 1 text/html Annual [employer] Post-MenopausalReported bypatient.Menopausal Symptoms:normal vaginal lubrication;hot flashes;insomnia due to night sweats Vaginal Bleeding:history of menopause having occurred; no history of post menopausal bleeding Urinary Symptoms:no hematuria; no incontinence; no nocturia; no urinary frequency Vulva:no genital lesion; no vulvar atrophy Vagina:normal vaginal discharge; no vaginal atrophy Breast:no breast lump; no nipple discharge; no breast pain Sexual Complaints:no sexual complaints Psychological Symptoms:no depression; no anxiety Preventive Measures:encourage regular mammograms starting age 40; encourage self breast examination; encourage regular exercise; encourage no tobacco use; needs to schedule mammogram 60 yo F with history of tubal ligation 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 Margarito box, [facility] 04/03/2021 16:06:31 4 text/html Hyperlipidemia tries to follow low-fat dietHypothyroid no heat or cold intoleranceIntermittent constipation and now with some lower quadrant abdominal pain no fever no chills Yasemin Chow MD Attn: Accounting[address] [place], [address], [facility] 09/26/2023 08:28:39 4 text/html Hyperlipidemia tries to follow low-fat dietHypothyroid no heat or cold intoleranceIntermittent constipation and now with some lower quadrant abdominal pain no fever no chills when she takes her MiraLax daily it is fine Yasemin Chow MD Attn: Accounting[address] [place], [address], [facility] 01/21/2024 22:22:55 5 text/html hypothyroid energy level is fine the pain on her right foot that has been going on for a couple of months with no history of trauma. Dyslipidemia she is taking her rosuvastatin and she has had a little bit of scaly lesion in the back of her scalp Yasemin Chow MD Attn: [address] [place], [address], [facility] 07/26/2024 21:13:45 OBGyn Episode Ob Episode Information Episode Created Date Number of Fetuses Patient Bloodtype Patient rh Status Prepregnancy Weight lbs Domestic Partner Domestic Partner Phone Father Name Cnc Grinder Status 04/05/20 16 1 CLOSED Fetus Data First Name Last Name Admitted to NICU Weight (g) Sex Living Outcome Pediatric Complications Fetus ID Race Codes Race Delivery Type 3572.03 7 [id number] Vaginal Levi Calculation Initial Levi Date Initial Exam Date Initial Exam Provider Initial Ultrasound Date Last Menstrual Period Date Ultra Sound Weeks Gestation 0 Eighteen To Twenty Week Levi Update Ultra Sound Date Fundal Height At Umbil Quickening Date Ultra Sound Latest Weeks Gestation Final Levi Confirmed By Final Levi Confirmed Date Final Levi Date Ultra Sound Latest Days Gestation 0 0 Menstrual History Last Menstrual Date Menses Monthly On Bcp Conception Prior Menses Frequency Hcg Plus Date Menarche Onset Age Delivery Information Delivery Date Delivery Type Labor Anesthesia Weeks Gestation Incision Type Labor Labor Length Hrs Delivered By Post Complications Tubal Sterilization Discharge Date Comments 3 Regional- idural 40 6 Discharge Information Feeding Method Contraceptive Method Maternal HG B and HCT Levels
--- OUTSIDE RECORDS SUMMARY | 2024-12-08 08:48 | XMS_ITS | Data Portability ---
Author Organization [facility], Main Office Address [address] [place] [address] Assessment Encounter Date Assessment Date Assessment LastModified by Organization Details LastModified Time 08/31/2022 08/31/2022 Continue current therapy follow-up 6 months [id number] Not available 08/31/2022 11:19:12 12/12/2022 12/12/2022 [address] abdomen and pelvis with contrast see me back in 1 month Not available 12/12/2022 11:27:46 01/07/2023 01/07/2023 Etiology is not clear I will have GI take a look at her she may need to see or data migration consultant before it is all said and done Not available 01/07/2023 22:17:40 Plan of Treatment Reminders Order Date Submit Date Provider Last Modified By Organization Details Last Modified Time Details Appointments None recorded. Lab lipase, serum or plasma [address] [facility] (Lab), [address] [place], [address], 12:53:20 lipid panel, serum [address] [facility] (Lab), [address] [place], [address], 12:53:23 CMP, serum or plasma [address] [facility] (Lab), [address] [place], [address], 06/14/202 3 13:03:56 CBC w/ auto diff [address] [facility] (Lab), [address] [place], [address], 3 12:43:25 T4, free, serum [address] [facility] (Lab), [address] [place], [address], 3 23:19:43 TSH, serum or plasma [address] [facility] (Lab), [address] [place], [address], 3 14:50:15 T3, free, serum or plasma [address] [facility] (Lab), [address] [place], [address], 3 23:19:47 Referral gastroenter ologist referral 2022 023 nhung Joseph MD, [address] [facility], [address], [place], [address], 4 21:09:17 Procedures None recorded. Surgeries None recorded. Imaging CT, abdomen + pelvis, w/ contrast - Approved [id number] 12/13/2022- 01/11/20232022 023 [facility], [address] [place] [address], [address], [place], [address], 3 07:20:20 Medication Orders None recorded. Patient TargetsNo targets recorded. Patient InstructionsNo instructions recorded. Reason for Referral Sports Doctor Referral for Abdominal pain Referring Physician: Yinka Chow, Internal Medicine, Encounter Date: 01/07/2023 Results Created Date Observation Date Name Description Value Unit Range Abnormal Flag Note LastModifiedBy Organization Detail LastModifiedTime 08/25/19 22 08/25/2021 CBC W/MAN UAL DIFF mean red cell volume 93.1 fL 82.0-9 9.0 Not Available [facility] (Lab) [address] [place], [address], 08/25/2021 22:34:17 08/25/19 22 08/25/2021 CBC W/MAN UAL DIFF white blood cells 6.10 x10'3 /uL 4.2-10 .8 Not Available [facility] (Lab) [address] [place], [address], 08/25/2021 22:34:17 08/25/19 22 08/25/2021 CBC W/MAN UAL DIFF red blood cells 4.36 x10'6 /uL 3.80-5 .20 Not Available [facility] (Lab) [address] [place], [address], 08/25/2021 22:34:17 08/25/19 22 08/25/2021 CBC W/MAN UAL DIFF hemoglobin 12.8 g/dL 12.0-1 5.6 Not Available [facility] (Lab) [address] [place], [address], 08/25/2021 22:34:17 08/25/19 22 08/25/2021 CBC W/MAN UAL DIFF hematocrit 40.6 % 35.7-4 5.7 Not Available [facility] (Lab) [address] [place], [address], 08/25/2021 22:34:17 08/25/19 22 08/25/2021 CBC W/MAN UAL DIFF mean red cell hemoglobin 29.4 pg 27.0-3 3.0 Not Available [facility] (Lab) [address] [place], [address], 08/25/2021 22:34:17 08/25/19 22 08/25/2021 CBC W/MAN UAL DIFF mean RBC HGB concentratio n 31.5 g/dL 31.0-3 6.0 Not Available [facility] (Lab) [address] [place], [address], 08/25/2021 22:34:17 08/25/19 22 08/25/2021 CBC W/MAN UAL DIFF red cell distribution width 13.7 % 11.8-1 5.5 Not Available [facility] (Lab) [address] [place], [address], 08/25/2021 22:34:17 08/25/19 22 08/25/2021 CBC W/MAN UAL DIFF platelets 277 x10'3 /uL 150-40 0 Not Available [facility] (Lab) [address] [place], [address], 08/25/2021 22:34:17 08/25/19 22 08/25/2021 CBC W/MAN UAL DIFF mean platelet volume 10.6 fL 9.0-12 .4 Not Available [facility] (Lab) [address] [place], [address], 08/25/2021 22:34:17 08/25/19 22 08/25/2021 CBC W/MAN UAL DIFF neutrophils 64 % 39.0-7 2.0 Not Available [facility] (Lab) [address] [place], [address], 08/25/2021 22:34:17 08/25/19 22 08/25/2021 CBC W/MAN UAL DIFF lymphocytes 29 % 16.0-4 7.0 Not Available [facility] (Lab) [address] [place], [address], 08/25/2021 22:34:17 08/25/19 22 08/25/2021 CBC W/MAN UAL DIFF monocytes 5 % 5.0-12 .0 Not Available [facility] (Lab) [address] [place], [address], 08/25/2021 22:34:17 08/25/19 22 08/25/2021 CBC W/MAN UAL DIFF eosinophils 2 % 1.0-7. 0 Not Available [facility] (Lab) [address] [place], [address], 08/25/2021 22:34:17 08/25/19 22 08/25/2021 TSH thyroid-stim ulating hormone 0.914 uIU/m L 0.465- 4.680 Not Available [facility] (Lab) [address] [place], [address], 08/25/2021 12:40:29 08/25/19 22 08/25/2021 T3 FREE free T3 3.8 pg/mL 2.77-5 .27 Not Available [facility] (Lab) [address] [place], [address], 08/25/2021 12:29:34 08/25/19 22 08/25/2021 T4 FREE free T4 1.32 NG/dL 0.78-2 .19 Not Available [facility] (Lab) [address] [place], [address], 08/25/2021 12:29:24 08/25/19 22 08/25/2021 CBC/C OMPLE TE BLD COUNT W/DIF F hematocrit 40.6 % 35.7-4 5.7 Not Available [facility] (Lab) [address] [place], [address], 08/25/2021 11:52:57 08/25/19 22 08/25/2021 CBC/C OMPLE TE BLD COUNT W/DIF F white blood cells 6.1 x10'3 /uL 4.2-10 .8 Not Available [facility] (Lab) [address] [place], [address], 08/25/2021 11:52:57 08/25/19 22 08/25/2021 CBC/C OMPLE TE BLD COUNT W/DIF F red blood cells 4.36 x10'6 /uL 3.80-5 .20 Not Available [facility] (Lab) [address] [place], [address], 08/25/2021 11:52:57 08/25/19 22 08/25/2021 CBC/C OMPLE TE BLD COUNT W/DIF F hemoglobin 12.8 g/dL 12.0-1 5.6 Not Available [facility] (Lab) [address] [facility] [place], [address], 08/25/2021 11:52:57 08/25/19 22 08/25/2021 CBC/C OMPLE TE BLD COUNT W/DIF F mean red cell volume 93.1 fL 82.0-9 9.0 Not Available [facility] (Lab) [address] [place], [address], 08/25/2021 11:52:57 08/25/19 22 08/25/2021 CBC/C OMPLE TE BLD COUNT W/DIF F mean red cell hemoglobin 29.4 pg 27.0-3 3.0 Not Available [facility] (Lab) [address] [place], [address], 08/25/2021 11:52:57 08/25/19 22 08/25/2021 CBC/C OMPLE TE BLD COUNT W/DIF F mean RBC HGB concentratio n 31.5 g/dL 31.0-3 6.0 Not Available [facility] (Lab) [address] [place], [address], 08/25/2021 11:52:57 08/25/19 22 08/25/2021 CBC/C OMPLE TE BLD COUNT W/DIF F red cell distribution width 13.7 % 11.8-1 5.5 Not Available [facility] (Lab) [address] [place], [address], 08/25/2021 11:52:57 08/25/19 22 08/25/2021 CBC/C OMPLE TE BLD COUNT W/DIF F platelets 277 x10'3 /uL 150-40 0 Not Available [facility] (Lab) [address] [place], [address], 08/25/2021 11:52:57 08/25/19 22 08/25/2021 CBC/C OMPLE TE BLD COUNT W/DIF F mean platelet volume 10.6 fL 9.0-12 .4 Not Available [facility] (Lab) [address] [place], [address], 08/25/2021 11:52:57 08/25/19 22 08/25/2021 CBC/C OMPLE TE BLD COUNT W/DIF F neutrophils 56.9 % 39.0-7 2.0 Not Available [facility] (Lab) [address] [place], [address], 08/25/2021 11:52:57 08/25/19 22 08/25/2021 CBC/C OMPLE TE BLD COUNT W/DIF F lymphocytes 34.3 % 16.0-4 7.0 Not Available [facility] (Lab) [address] [place], [address], 08/25/2021 11:52:57 08/25/19 22 08/25/2021 CBC/C OMPLE TE BLD COUNT W/DIF F monocytes 5.1 % 5.0-12 .0 Not Available [facility] (Lab) [address] [place], [address], 08/25/2021 11:52:57 08/25/19 22 08/25/2021 CBC/C OMPLE TE BLD COUNT W/DIF F eosinophils 3.1 % 1.0-7. 0 Not Available [facility] (Lab) [address] [place], [address], 08/25/2021 11:52:57 08/25/19 22 08/25/2021 CBC/C OMPLE TE BLD COUNT W/DIF F basophils 0.3 % 0.0-2. 0 Not Available [facility] (Lab) [address] [place], [address], 08/25/2021 11:52:57 08/25/19 22 08/25/2021 CBC/C OMPLE TE BLD COUNT W/DIF F immature granulocytes 0.3 % 0.00-0 .50 Not Available [facility] (Lab) [address] [place], [address], 08/25/2021 11:52:57 08/25/19 22 08/25/2021 CBC/C OMPLE TE BLD COUNT W/DIF F neutrophils, absolute count 3.47 x10'3 /uL 1.5-8. 0 Not Available [facility] (Lab) [address] [place], [address], 08/25/2021 11:52:57 08/25/19 22 08/25/2021 CBC/C OMPLE TE BLD COUNT W/DIF F lymphocytes, absolute count 2.09 x10'3 /uL 1.07-3 .43 Not Available [facility] (Lab) [address] [place], [address], 08/25/2021 11:52:57 08/25/19 22 08/25/2021 CBC/C OMPLE TE BLD COUNT W/DIF F monocytes, absolute count 0.31 x10'3 /uL 0.29-0 .99 Not Available [facility] (Lab) [address] [place], [address], 08/25/2021 11:52:57 08/25/19 22 08/25/2021 CBC/C OMPLE TE BLD COUNT W/DIF F eosinophils, absolute count 0.19 x10'3 /uL 0.02-0 .53 Not Available [facility] (Lab) [address] [place], [address], 08/25/2021 11:52:57 08/25/19 22 08/25/2021 CBC/C OMPLE TE BLD COUNT W/DIF F basophils, absolute count 0.02 x10'3 /uL 0.01-0 .08 Not Available [facility] (Lab) [address] [place], [address], 08/25/2021 11:52:57 08/25/19 22 08/25/2021 CBC/C OMPLE TE BLD COUNT W/DIF F immature granulocytes ,absolute 0.02 x10'3 /uL 0.00-0 .05 Not Available [facility] (Lab) [address] [place], [address], 08/25/2021 11:52:57 08/25/19 22 08/25/2021 CBC/C OMPLE TE BLD COUNT W/DIF F nucleated red blood cells 0.0 % -0 Not Available [facility] (Lab) [address] [place], [address], 08/25/2021 11:52:57 08/25/19 22 08/25/2021 CBC/C OMPLE TE BLD COUNT W/DIF F NRBC# 0.00 x10'3 /uL Not Available [facility] (Lab) [address] [place], [address], 08/25/2021 11:52:57 08/25/19 22 08/25/2021 COMPR EHENS NAV METAB OLIC PANEL chloride 107 mmol/ L 98-107 Not Available [facility] (Lab) [address] [place], [address], 08/25/2021 12:19:18 08/25/19 22 08/25/2021 COMPR EHENS NAV METAB OLIC PANEL sodium 138 mmol/ L 137-14 5 Not Available [facility] (Lab) [address] [place], [address], 08/25/2021 12:19:18 08/25/19 22 08/25/2021 COMPR EHENS NAV METAB OLIC PANEL potassium 4.4 mmol/ L 3.5-5. 1 Not Available [facility] (Lab) [address] [place], [address], 08/25/2021 12:19:18 08/25/19 22 08/25/2021 COMPR EHENS NAV METAB OLIC PANEL carbon dioxide 27 mmol/ L 22-30 Not Available [facility] (Lab) [address] [facility] [place], [address], 08/25/2021 12:19:18 08/25/19 22 08/25/2021 COMPR EHENS NAV METAB OLIC PANEL agap 8.4 mmol/ L 14-22 low Not Available [facility] (Lab) [address] [facility] [place], [address], 08/25/2021 12:19:18 08/25/19 22 08/25/2021 COMPR EHENS NAV METAB OLIC PANEL glucose 89 mg/dL 70-99 Not Available [facility] (Lab) [address] [place], [address], 08/25/2021 12:19:18 08/25/19 22 08/25/2021 COMPR EHENS NVA METAB OLIC PANEL BUN 9 mg/dL 8-19 Not Available [facility] (Lab) [address] [facility] [place], [address], 08/25/2021 12:19:18 08/25/19 22 08/25/2021 COMPR EHENS NAV METAB OLIC PANEL creatinine 0.66 mg/dL 0.66-1 .25 Not Available [facility] (Lab) [address] [place], [address], 08/25/2021 12:19:18 08/25/19 22 08/25/2021 COMPR EHENS NAV METAB OLIC PANEL GFR >60 Refer ence Range : [place] ge GFR Healt hy Adult : >60 mL/mi n/1.7 3 m2 Chron ic Kidne y Disea se: 15-60 mL/mi n/1.7 3 m2 Kidne y Failu re: <15/m L/min /1.73 m2 www.n iddk. nih.g ov The MDRD study equat ion has not been valid ated in child vanita <18 years of age; pregn ant women ; the elder ly >85 years of age; or in some racia l or ethni c subgr oups, such as Hispa nics. Outsi de the valid ated joon eters , estim ated GFR is less accur ate, requi ring clini fela judgm ent on a case- by-ca se basis . Clini fela inter preta tion for other races and ages must be made by the clini john. The MDRD study equat ion has not been valid ated for the evalu ation of serum creat inine relat ed to nutri deiran l statu s or medic ation usage . For perso ns <18 years of age, a pedia tric GFR calcu lator is avail able on the [facility] websi te: https ://jacqueline ko.yandel grover/marlen cooperal s/kdo qi/gf r_cal culat or Not Available [facility] (Lab) [address] [place], [address], 08/25/2021 12:19:18 08/25/19 22 08/25/2021 COMPR EHENS NAV METAB OLIC PANEL alkaline phosphatase 48 U/L 38-126 Not Available [facility] (Lab) [address] [place], [address], 08/25/2021 12:19:18 08/25/19 22 08/25/2021 COMPR EHENS NAV METAB OLIC PANEL alanine aminotransfe rase 26 U/L 0-35 Not Available [facility] (Lab) [address] [place], [address], 08/25/2021 12:19:18 08/25/19 22 08/25/2021 COMPR EHENS NAV METAB OLIC PANEL aspartate aminotransfe rase 31 U/L 15-37 Not Available [facility] (Lab) [address] [place], [address], 08/25/2021 12:19:18 08/25/19 22 08/25/2021 COMPR EHENS NAV METAB OLIC PANEL bilirubin, total 0.40 mg/dL 0.20-1 .30 Not Available [facility] (Lab) [address] [place], [address], 08/25/2021 12:19:18 08/25/19 22 08/25/2021 COMPR EHENS NAV METAB OLIC PANEL calcium 8.7 mg/dL 8.4-10 .2 Not Available [facility] (Lab) [address] [place], [address], 08/25/2021 12:19:18 08/25/19 22 08/25/2021 COMPR EHENS NAV METAB OLIC PANEL total protein 6.7 g/dL 6.3-8. 2 Not Available [facility] (Lab) [address] [place], [address], 08/25/2021 12:19:18 08/25/19 22 08/25/2021 COMPR EHENS NAV METAB OLIC PANEL albumin 4.3 g/dL 3.4-5. 0 Not Available [facility] (Lab) [address] [place], [address], 08/25/2021 12:19:18 08/25/19 22 08/25/2021 COMPR EHENS NAV METAB OLIC PANEL globulin 2.4 g/dL 2.6-4. 2 low Not Available [facility] (Lab) [address] [place], [address], 08/25/2021 12:19:18 08/25/19 22 08/25/2021 COMPR EHENS NAV METAB OLIC PANEL A/G ratio 1.8 ratio 1.0-2. 0 Not Available [facility] (Lab) [address] [place], [address], 08/25/2021 12:19:18 08/25/19 22 08/25/2021 LIPID PANEL cholesterol 166 mg/dL 140-19 9 NIH SLAVA NSUS RECOM MENDA TION FOR LORRAINE STERO L: ADULT CHILD LOW RISK: <200 <170 BORDE RLINE : <200- 239 ----- HIGH RISK: >240 >200 Not Available [facility] (Lab) [address] [place], [address], 08/25/2021 12:19:02 08/25/19 22 08/25/2021 LIPID PANEL triglyceride s 70 mg/dL 0-150 NIH SLAVA NSUS REPOR T RECOM MENDA TION FOR TRIGL YCERI IAN: ADULT CHILD LOW RISK: <150 ----- BODER LINE: 150-1 99 ----- HIGH RISK: >200 ----- Not Available [facility] (Lab) [address] [place], [address], 08/25/2021 12:19:02 08/25/19 22 08/25/2021 LIPID PANEL HDL cholesterol 77 mg/dL 40- Not Available [facility] (Lab) [address] [place] [address], [address], 08/25/2021 12:19:02 08/25/19 22 08/25/2021 LIPID PANEL LDL cholesterol, calculated 75 mg/dL 0-130 NIH SLAVA NSUS REPOR T RECOM MENDA TIONS FOR LDL: ADULT CHILD LOW RISK <130 <110 (OPTI MAL LDL) <100 ----- BORDE RLINE : 130-1 59 ----- HIGH RISK: >160 >130 A TRIGL YCERI DE RESUL T >400 INVAL IDATE S THE CALCU LATIO N FOR LDL FRACT IONAT ION - THE LDL RESUL T WILL NOT BE REPOR STEW. Not Available [facility] (Lab) [address] [place], [address], 08/25/2021 12:19:02 03/02/20 22 03/02/2022 COMPR EHENS NAV METAB OLIC PANEL carbon dioxide 25 mmol/ L 22-30 Not Available [facility] (Lab) [address] [place], [address], 03/02/2022 14:33:41 03/02/20 22 03/02/2022 COMPR EHENS NAV METAB OLIC PANEL sodium 137 mmol/ L 137-14 5 Not Available [facility] (Lab) [address] [place], [address], 03/02/2022 14:33:41 03/02/20 22 03/02/2022 COMPR EHENS NAV METAB OLIC PANEL potassium 4.5 mmol/ L 3.5-5. 1 Not Available [facility] (Lab) [address] [place], [address], 03/02/2022 14:33:41 03/02/20 22 03/02/2022 COMPR EHENS NAV METAB OLIC PANEL chloride 104 mmol/ L 98-107 Not Available [facility] (Lab) [address] [place], [address], 03/02/2022 14:33:41 03/02/20 22 03/02/2022 COMPR EHENS NAV METAB OLIC PANEL anion gap 12.5 mmol/ L 14-22 low Not Available [facility] (Lab) [address] [place], [address], 03/02/2022 14:33:41 03/02/20 22 03/02/2022 COMPR EHENS NAV METAB OLIC PANEL glucose 89 mg/dL 70-99 Not Available [facility] (Lab) [address] [place], [address], 03/02/2022 14:33:41 03/02/20 22 03/02/2022 COMPR EHENS NAV METAB OLIC PANEL BUN 14 mg/dL 8-19 Not Available [facility] (Lab) [address] [place], [address], 03/02/2022 14:33:41 03/02/20 22 03/02/2022 COMPR EHENS NAV METAB OLIC PANEL creatinine 0.77 mg/dL 0.66-1 .25 Not Available [facility] (Lab) [address] [place], [address], 03/02/2022 14:33:41 03/02/20 22 03/02/2022 COMPR EHENS NAV METAB OLIC PANEL GFR >60 Refer ence Range : [place] ge GFR Healt hy Adult : >60 mL/mi n/1.7 3 m2 Chron ic Kidne y Disea se: 15-60 mL/mi n/1.7 3 m2 Kidne y Failu re: <15/m L/min /1.73 m2 www.n iddk. nih.g ov The MDRD study equat ion has not been valid ated in child vanita <18 years of age; pregn ant women ; the elder ly >85 years of age; or in some racia l or ethni c subgr oups, such as [facility] nics. Outsi de the valid ated joon eters , estim ated GFR is less accur ate, requi ring clini fela judgm ent on a case- by-ca se basis . Clini fela inter preta tion for other races and ages must be made by the clini john. The MDRD study equat ion has not been valid ated for the evalu ation of serum creat inine relat ed to nutri derian l statu s or medic ation usage . For perso ns <18 years of age, a pedia tric GFR calcu lator is avail able on the F websi te: https ://jacqueline ko.o rg/pr ofess ional s/kdo qi/gf r_cal culat or Not Available [facility] (Lab) [address] [place], [address], 03/02/2022 14:33:41 03/02/20 22 03/02/2022 COMPR EHENS NAV METAB OLIC PANEL alkaline phosphatase 49 U/L 38-126 Not Available [facility] (Lab) [address] [place], [address], 03/02/2022 14:33:41 03/02/20 22 03/02/2022 COMPR EHENS NAV METAB OLIC PANEL alanine aminotransfe rase 23 U/L 0-35 Not Available [facility] (Lab) [address] [facility] [place], [address], 03/02/2022 14:33:41 03/02/20 22 03/02/2022 COMPR EHENS NAV METAB OLIC PANEL aspartate aminotransfe rase 28 U/L 15-37 Not Available [facility] (Lab) [address] [place], [address], 03/02/2022 14:33:41 03/02/20 22 03/02/2022 COMPR EHENS NAV METAB OLIC PANEL bilirubin, total 0.50 mg/dL 0.20-1 .30 Not Available [facility] (Lab) [address] [place], [address], 03/02/2022 14:33:41 03/02/20 22 03/02/2022 COMPR EHENS NAV METAB OLIC PANEL calcium 9.3 mg/dL 8.4-10 .2 Not Available [facility] (Lab) [address] [place], [address], 03/02/2022 14:33:41 03/02/20 22 03/02/2022 COMPR EHENS NAV METAB OLIC PANEL total protein 7.1 g/dL 6.3-8. 2 Not Available [facility] (Lab) [address] [place], [address], 03/02/2022 14:33:41 03/02/20 22 03/02/2022 COMPR EHENS NAV METAB OLIC PANEL albumin 4.6 g/dL 3.4-5. 0 Not Available [facility] (Lab) [address] [place], [address], 03/02/2022 14:33:41 03/02/20 22 03/02/2022 COMPR EHENS NAV METAB OLIC PANEL globulin 2.5 g/dL 2.6-4. 2 low Not Available [facility] (Lab) [address] [place], [address], 03/02/2022 14:33:41 03/02/20 22 03/02/2022 COMPR EHENS NAV METAB OLIC PANEL A/G ratio 1.8 ratio 1.0-2. 0 Not Available [facility] (Lab) [address] [place], [address], 03/02/2022 14:33:41 03/02/20 22 03/02/2022 CBC W/MAN UAL DIFF hematocrit 41.9 % 35.7-4 5.7 Not Available [facility] (Lab) [address] [place], [address], 03/02/2022 14:39:25 03/02/20 22 03/02/2022 CBC W/MAN UAL DIFF white blood cells 7.2 x10'3 /uL 4.2-10 .8 Not Available [facility] (Lab) [address] [place], [address], 03/02/2022 14:39:25 03/02/20 22 03/02/2022 CBC W/MAN UAL DIFF red blood cells 4.48 x10'6 /uL 3.80-5 .20 Not Available [facility] (Lab) [address] [place], [address], 03/02/2022 14:39:25 03/02/20 22 03/02/2022 CBC W/MAN UAL DIFF hemoglobin 13.4 g/dL 12.0-1 5.6 Not Available [facility] (Lab) [address] [place], [address], 03/02/2022 14:39:25 03/02/20 22 03/02/2022 CBC W/MAN UAL DIFF mean red cell volume 93.5 fL 82.0-9 9.0 Not Available [facility] (Lab) [address] [place], [address], 03/02/2022 14:39:25 03/02/20 22 03/02/2022 CBC W/MAN UAL DIFF mean red cell hemoglobin 29.9 pg 27.0-3 3.0 Not Available [facility] (Lab) [address] [place], [address], 03/02/2022 14:39:25 03/02/20 22 03/02/2022 CBC W/MAN UAL DIFF mean RBC HGB concentratio n 32.0 g/dL 31.0-3 6.0 Not Available [facility] (Lab) [address] [place], [address], 03/02/2022 14:39:25 03/02/20 22 03/02/2022 CBC W/MAN UAL DIFF red cell distribution width 13.5 % 11.8-1 5.5 Not Available [facility] (Lab) [address] [place], [address], 03/02/2022 14:39:25 03/02/20 22 03/02/2022 CBC W/MAN UAL DIFF platelets 263 x10'3 /uL 150-40 0 Not Available [facility] (Lab) [address] [place], [address], 03/02/2022 14:39:25 03/02/20 22 03/02/2022 CBC W/MAN UAL DIFF mean platelet volume 10.7 fL 9.0-12 .4 Not Available [facility] (Lab) [address] [place], [address], 03/02/2022 14:39:25 03/02/20 22 03/02/2022 CBC W/MAN UAL DIFF neutrophils 61 % 39.0-7 2.0 Not Available [facility] (Lab) [address] [place], [address], 03/02/2022 14:39:25 03/02/20 22 03/02/2022 CBC W/MAN UAL DIFF bands 3 % 0-3 Not Available [facility] (Lab) [address] [place], [address], 03/02/2022 14:39:25 03/02/20 22 03/02/2022 CBC W/MAN UAL DIFF lymphocytes 30 % 16.0-4 7.0 Not Available [facility] (Lab) [address] [place], [address], 03/02/2022 14:39:25 03/02/20 22 03/02/2022 CBC W/MAN UAL DIFF monocytes 4 % 5.0-12 .0 low Not Available [facility] (Lab) [address] [place], [address], 03/02/2022 14:39:25 03/02/20 22 03/02/2022 CBC W/MAN UAL DIFF eosinophils 2 % 1.0-7. 0 Not Available [facility] (Lab) [address] [place], [address], 03/02/2022 14:39:25 03/02/20 22 03/02/2022 CBC W/MAN UAL DIFF nucleated red blood cells 0.0 % -0 Not Available [facility] (Lab) [address] [place], [address], 03/02/2022 14:39:25 03/02/20 22 03/02/2022 LIPID PANEL cholesterol 162 mg/dL 140-19 9 [facility] SLA[facility] NSUS RECOM MENDA TION FOR LORRAINE STERO L: ADULT CHILD LOW RISK: <200 <170 BORDE RLINE : <200- 239 ----- HIGH RISK: >240 >200 Not Available [facility] (Lab) [address] [place], [address], 03/02/2022 14:33:43 03/02/20 22 03/02/2022 LIPID PANEL triglyceride s 87 mg/dL 0-150 [facility] SLA[facility] NSUS REPOR T RECOM MENDA TION FOR TRIGL YCERI AIN: ADULT CHILD LOW RISK: <150 ----- BODER LINE: 150-1 99 ----- HIGH RISK: >200 ----- Not Available [facility] (Lab) [address] [place], [address], 03/02/2022 14:33:43 03/02/20 22 03/02/2022 LIPID PANEL HDL cholesterol 69 mg/dL 40- Not Available [facility] (Lab) [address] [place], [address], 03/02/2022 14:33:43 03/02/20 22 03/02/2022 LIPID PANEL LDL cholesterol, calculated 76 mg/dL 0-130 [facility] SLA[facility] NSUS REPOR T RECOM MENDA TIONS FOR LDL: ADULT CHILD LOW RISK <130 <110 (OPTI MAL LDL) <100 ----- BORDE RLINE : 130-1 59 ----- HIGH RISK: >160 >130 A TRIGL YCERI DE RESUL T >400 INVAL IDATE S THE CALCU LATIO N FOR LDL FRACT IONAT ION - THE LDL RESUL T WILL NOT BE REPOR STEW. Not Available [facility] (Lab) [address] [place], [address], 03/02/2022 14:33:43 12/13/19 23 12/12/2022 CBC/C OMPLE TE BLD COUNT W/DIF F white blood cells 6.3 x10'3 /uL 4.2-10 .8 Not Available [facility] (Lab) [address] [place], [address], 12/12/2022 12:43:25 12/13/19 23 12/12/2022 CBC/C OMPLE TE BLD COUNT W/DIF F red blood cells 4.61 x10'6 /uL 3.80-5 .20 Not Available [facility] (Lab) [address] [place], [address], 12/12/2022 12:43:25 12/13/19 23 12/12/2022 CBC/C OMPLE TE BLD COUNT W/DIF F hemoglobin 13.4 g/dL 12.0-1 5.6 Not Available [facility] (Lab) [address] [place], [address], 12/12/2022 12:43:25 12/13/19 23 12/12/2022 CBC/C OMPLE TE BLD COUNT W/DIF F hematocrit 42.9 % 35.7-4 5.7 Not Available [facility] (Lab) [address] [place], [address], 12/12/2022 12:43:25 12/13/19 23 12/12/2022 CBC/C OMPLE TE BLD COUNT W/DIF F mean red cell volume 93.1 fL 82.0-9 9.0 Not Available [facility] (Lab) [address] [place], [address], 12/12/2022 12:43:25 12/13/19 23 12/12/2022 CBC/C OMPLE TE BLD COUNT W/DIF F mean red cell hemoglobin 29.1 pg 27.0-3 3.0 Not Available [facility] (Lab) [address] [place], [address], 12/12/2022 12:43:25 12/13/19 23 12/12/2022 CBC/C OMPLE TE BLD COUNT W/DIF F mean RBC HGB concentratio n 31.2 g/dL 31.0-3 6.0 Not Available [facility] (Lab) [address] [place], [address], 12/12/2022 12:43:25 12/13/19 23 12/12/2022 CBC/C OMPLE TE BLD COUNT W/DIF F red cell distribution width 13.6 % 11.8-1 5.5 Not Available [facility] (Lab) [address] [place], [address], 12/12/2022 12:43:25 12/13/19 23 12/12/2022 CBC/C OMPLE TE BLD COUNT W/DIF F platelets 254 x10'3 /uL 150-40 0 Not Available [facility] (Lab) [address] [place], [address], 12/12/2022 12:43:25 12/13/19 23 12/12/2022 CBC/C OMPLE TE BLD COUNT W/DIF F mean platelet volume 10.6 fL 9.0-12 .4 Not Available [facility] (Lab) [address] [place], [address], 12/12/2022 12:43:25 12/13/19 23 12/12/2022 CBC/C OMPLE TE BLD COUNT W/DIF F neutrophils 57.5 % 39.0-7 2.0 Not Available [facility] (Lab) [address] [place], [address], 12/12/2022 12:43:25 12/13/19 23 12/12/2022 CBC/C OMPLE TE BLD COUNT W/DIF F lymphocytes 30.3 % 16.0-4 7.0 Not Available [facility] (Lab) [address] [place], [address], 12/12/2022 12:43:25 12/13/19 23 12/12/2022 CBC/C OMPLE TE BLD COUNT W/DIF F monocytes 6.1 % 5.0-12 .0 Not Available [facility] (Lab) [address] [place], [address], 12/12/2022 12:43:25 12/13/19 23 12/12/2022 CBC/C OMPLE TE BLD COUNT W/DIF F eosinophils 5.4 % 1.0-7. 0 Not Available [facility] (Lab) [address] [place], [address], 12/12/2022 12:43:25 12/13/1912/12/2022 CBC/C OMPLE TE BLD COUNT W/DIF F basophils 0.5 % 0.0-2. 0 Not Available [facility] (Lab) [address] [place], [address], 12/12/2022 12:43:25 12/13/19 23 12/12/2022 CBC/C OMPLE TE BLD COUNT W/DIF F immature granulocytes 0.2 % 0.00-0 .50 Not Available [facility] (Lab) [address] [place], [address], 12/12/2022 12:43:25 12/13/1912/12/2022 CBC/C OMPLE TE BLD COUNT W/DIF F neutrophils, absolute count 3.61 x10'3 /uL 1.5-8. 0 Not Available [facility] (Lab) [address] [place], [address], 12/12/2022 12:43:25 12/13/19 23 12/12/2022 CBC/C OMPLE TE BLD COUNT W/DIF F lymphocytes, absolute count 1.90 x10'3 /uL 1.07-3 .43 Not Available [facility] (Lab) [address] [place], [address], 12/12/2022 12:43:25 12/13/19 23 12/12/2022 CBC/C OMPLE TE BLD COUNT W/DIF F monocytes, absolute count 0.38 x10'3 /uL 0.29-0 .99 Not Available [facility] (Lab) [address] [place], [address], 12/12/2022 12:43:25 12/13/19 23 12/12/2022 CBC/C OMPLE TE BLD COUNT W/DIF F eosinophils, absolute count 0.34 x10'3 /uL 0.02-0 .53 Not Available [facility] (Lab) [address] [place], [address], 12/12/2022 12:43:25 12/13/19 23 12/12/2022 CBC/C OMPLE TE BLD COUNT W/DIF F basophils, absolute count 0.03 x10'3 /uL 0.01-0 .08 Not Available [facility] (Lab) [address] [place], [address], 12/12/2022 12:43:25 12/13/19 23 12/12/2022 CBC/C OMPLE TE BLD COUNT W/DIF F immature granulocytes ,absolute 0.01 x10'3 /uL 0.00-0 .05 Not Available [facility] (Lab) [address] [place], [address], 12/12/2022 12:43:25 12/13/19 23 12/12/2022 CBC/C OMPLE TE BLD COUNT W/DIF F nucleated red blood cells 0.0 % -0 Not Available [facility] (Lab) [address] [place], [address], 12/12/2022 12:43:25 12/13/19 23 12/12/2022 CBC/C OMPLE TE BLD COUNT W/DIF F NRBC# 0.00 x10'3 /uL Not Available [facility] (Lab) [address] [place], [address], 12/12/2022 12:43:25 12/13/19 23 12/12/2022 LIPAS E SERUM lipase 160 U/L 23-300 Not Available [facility] (Lab) [address] [place], [address], 12/12/2022 12:53:20 12/13/19 23 12/12/2022 LIPID PANEL cholesterol 177 mg/dL 140-19 9 NIH SLAVA NSUS RECOM MENDA TION FOR LORRAINE STERO L: ADULT CHILD LOW RISK: <200 <170 BORDE RLINE : <200- 239 ----- HIGH RISK: >240 >200 Not Available [facility] (Lab) [address] [place] [address], [address], 12/12/2022 12:53:23 12/13/19 23 12/12/2022 LIPID PANEL triglyceride s 82 mg/dL 0-150 NIH SLAVA NSUS REPOR T RECOM MENDA TION FOR TRIGL YCERI IAN: ADULT CHILD LOW RISK: <150 ----- BODER LINE: 150-1 99 ----- HIGH RISK: >200 ----- Not Available [facility] (Lab) [address] [place] [address], [address], 12/12/2022 12:53:23 12/13/19 23 12/12/2022 LIPID PANEL HDL cholesterol 76 mg/dL 40- Not Available [facility] (Lab) [address] [place] [address], [address], 12/12/2022 12:53:23 12/13/19 23 12/12/2022 LIPID PANEL LDL cholesterol, calculated 85 mg/dL 0-130 NIH SLAVA NSUS REPOR T RECOM MENDA TIONS FOR LDL: ADULT CHILD LOW RISK <130 <110 (OPTI MAL LDL) <100 ----- BORDE RLINE : 130-1 59 ----- HIGH RISK: >160 >130 A TRIGL YCERI DE RESUL T >400 INVAL IDATE S THE CALCU LATIO N FOR LDL FRACT IONAT ION - THE LDL RESUL T WILL NOT BE REPOR STEW. Not Available [facility] (Lab) [address] [place], [address], 12/12/2022 12:53:23 12/13/19 23 12/12/2022 COMPR EHENS NAV METAB OLIC PANEL sodium 140 mmol/ L 137-14 5 Not Available [facility] (Lab) [address] [place], [address], 12/12/2022 13:04:07 12/13/19 23 12/12/2022 COMPR EHENS NAV METAB OLIC PANEL potassium 4.6 mmol/ L 3.5-5. 1 Not Available [facility] (Lab) [address] [place], [address], 12/12/2022 13:04:07 12/13/19 23 12/12/2022 COMPR EHENS NAV METAB OLIC PANEL chloride 104 mmol/ L 98-107 Not Available [facility] (Lab) [address] [place], [address], 12/12/2022 13:04:07 12/13/19 23 12/12/2022 COMPR EHENS NAV METAB OLIC PANEL carbon dioxide 27 mmol/ L 22-30 Not Available [facility] (Lab) [address] [place], [address], 12/12/2022 13:04:07 12/13/19 23 12/12/2022 COMPR EHENS NAV METAB OLIC PANEL anion gap 13.6 mmol/ L 14-22 low Not Available [facility] (Lab) [address] [place], [address], 12/12/2022 13:04:07 12/13/19 23 12/12/2022 COMPR EHENS NAV METAB OLIC PANEL glucose 83 mg/dL 70-99 Not Available [facility] (Lab) [address] [place], [address], 12/12/2022 13:04:07 12/13/19 23 12/12/2022 COMPR EHENS NAV METAB OLIC PANEL BUN 14 mg/dL 8-19 Not Available [facility] (Lab) [address] [place], [address], 12/12/2022 13:04:07 12/13/19 23 12/12/2022 COMPR EHENS NAV METAB OLIC PANEL creatinine 0.66 mg/dL 0.66-1 .25 Not Available [facility] (Lab) [address] [place], [address], 12/12/2022 13:04:07 12/13/19 23 12/12/2022 COMPR EHENS NAV METAB OLIC PANEL GFR >60 Refer ence Range : [place] ge GFR Healt hy Adult : >60 mL/mi n/1.7 3 m2 Chron ic Kidne y Disea se: 15-60 mL/mi n/1.7 3 m2 Kidne y Failu re: <15/m L/min /1.73 m2 www.n iddk. nih.g ov The MDRD study equat ion has not been valid ated in child vanita <18 years of age; pregn ant women ; the elder ly >85 years of age; or in some racia l or ethni c subgr oups, such as nv nics. Outsi de the valid ated joon eters , estim ated GFR is less accur ate, requi ring clini fela judgm ent on a case- by-ca se basis . Clini fela inter preta tion for other races and ages must be made by the clini john. The MDRD study equat ion has not been valid ated for the evalu ation of serum creat inine relat ed to nutri derian l statu s or medic ation usage . For perso ns <18 years of age, a pedia tric GFR calcu lator is avail able on the F websi te: https ://jacqueline w.clemente ko.o rg/pr ofess ional s/kdo qi/gf r_cal culat or Not Available [facility] (Lab) [address] [place], [address], 12/12/2022 13:04:07 12/13/19 23 12/12/2022 COMPR EHENS NAV METAB OLIC PANEL alkaline phosphatase 48 U/L 38-126 Not Available [facility] (Lab) [address] [place], [address], 12/12/2022 13:04:07 12/13/19 23 12/12/2022 COMPR EHENS NAV METAB OLIC PANEL alanine aminotransfe rase 23 U/L 0-35 Not Available [facility] (Lab) [address] [place], [address], 12/12/2022 13:04:07 12/13/19 23 12/12/2022 COMPR EHENS NAV METAB OLIC PANEL aspartate aminotransfe rase 28 U/L 15-37 Not Available [facility] (Lab) [address] [place], [address], 12/12/2022 13:04:07 12/13/19 23 12/12/2022 COMPR EHENS NAV METAB OLIC PANEL bilirubin, total 0.40 mg/dL 0.20-1 .30 Not Available [facility] (Lab) [address] [place], [address], 12/12/2022 13:04:07 12/13/19 23 12/12/2022 COMPR EHENS NAV METAB OLIC PANEL calcium 9.3 mg/dL 8.4-10 .2 Not Available [facility] (Lab) [address] [place], [address], 12/12/2022 13:04:07 12/13/19 23 12/12/2022 COMPR EHENS NAV METAB OLIC PANEL total protein 7.2 g/dL 6.3-8. 2 Not Available [facility] (Lab) [address] [place], [address], 12/12/2022 13:04:07 12/13/19 23 12/12/2022 COMPR EHENS NAV METAB OLIC PANEL albumin 4.3 g/dL 3.4-5. 0 Not Available [facility] (Lab) [address] [place], [address], 12/12/2022 13:04:07 12/13/19 23 12/12/2022 COMPR EHENS NAV METAB OLIC PANEL globulin 2.9 g/dL 2.6-4. 2 Not Available [facility] (Lab) [address] [place], [address], 12/12/2022 13:04:07 12/13/19 23 12/12/2022 COMPR EHENS NAV METAB OLIC PANEL A/G ratio 1.5 ratio 1.0-2. 0 Not Available [facility] (Lab) [address] [place], [address], 12/12/2022 13:04:07 12/13/19 23 12/12/2022 TSH W/REF DI FT4 TSH with reflex free T4 1.020 uIU/m L 0.465- 4.680 Not Available [facility] (Lab) [address] [place], [address], 12/12/2022 14:50:15 12/13/19 23 12/12/2022 T4 FREE free T4 1.75 NG/dL 0.78-2 .19 Not Available [facility] (Lab) [address] [place], [address], 12/12/2022 23:19:43 12/13/19 23 12/12/2022 T3 FREE free T3 3.4 pg/mL 2.77-5 .27 Not Available [facility] (Lab) [address] [place], [address], 12/12/2022 23:19:47 09/30/19 22 09/08/2021 colon oscop y scree mahesh (PROC ) No observ ation record ed. [id number] Krystina Jsoeph MD [address], [place], [address], 08/29/2022 06:09:37 10/13/19 22 09/04/2021 CT, coron jun calci um score No observ ation record ed. [id number] [facility] Referral Fax Line [address], [place], [address], 08/29/2022 06:09:37 10/13/19 22 09/04/2021 CT, coron jun calci um score No observ ation record ed. [id number] [facility] [address], [place], [address], 08/29/2022 06:09:37 12/07/19 23 12/06/2022 US, [facility]de [facility] [address], [place] [address] Patien t Name: TERENCE ZAVALETA Access ion #: [id number] Sex: F : 1959 4 Locati on: RAD Attend ing Physic anastasia: GAL CHOW Orderi Physic anastasia: GAL CHOW Exam Date: 12/07/19 23 12:48 PM Exam Name: US ABDOME N SINGLE ORGAN Admitt ing Diagno sis(es ): RADIOL OGY REPORT - FINAL EXAM: US ABDOME N SINGLE ORGAN HISTOR Y: ruq pain 62-yea r-old female with right upper quadra nt abdomi nal pain. COMPAR MATTHEW: None availa ble. TECHNI QUE: Right upper quadra nt ultras ound was perfor med. FINDIN GS: No gallst ones, gallbl adder wall thicke mahesh, or perich olecys tic free fluid. The patien t was not tender to transd ucer pressu re over the gallbl adder. Echoge artie nodule in the right lobe of the liver measur es 10 mm mm, likely repres enting allan ioma. There is hepato petal portal venous color Dopple r flow. The common duct measur es 5 mm in diamet er. The partia lly visual ized pancre as is unrema rkable . The intrah epatic portio n of the IVC is patent . No Page 1 of 2 [facility] Patien t Name: TERENCE ZAVALETA Access ion #: [id number] Sex: F : 1959 4 Exam Date: 12/07/19 12:48 PM Exam Name: US ABDOME N SINGLE ORGAN Admitt ing Diagno sis(es ): upper abdomi nal aortic ectasi a. The right kidney measur es 10.3 cm in length and is normal in appear ance. IMPRES AMAURI: 1. 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 2. Otherw ise unrema rkable right upper quadra nt ultras ound. Create d and electr onical ly signed by: Gilberto abraham MD Signed Date: 12/07/19 1:19 PM (CT) Dictat ed by: Gilberto abraham MD (CT) (CT) Page 2 of 2 [facility] (Imaging) [address] [place], [address], 12/12/2022 10:23:43 12/20/19 23 12/18/2022 CT, abdom en + pelvi s, w/ contr ast No observ ation record ed. [address], [place], [address], 01/07/2023 15:26:10 09/12/19 24 09/12/2023 MAMMO , scree mahesh, digit al, bilat eral No observ ation record ed. [email or web address] [id number] [facility] [address], [place], [address], 12/19/2023 10:25:14 Result Notes None recorded. Problems Name Problem SNOMED Code Status Onset Date Resolution Date Notes Provider Name and Address Organization Details Recorded Time Hypercholeste rolemia 95369384 Active 2019 Not Available [facility] 3 11:34:12 Liver enzymes outside reference range 435970000 Active Not Available [facility] 3 11:34:12 Multinodular goiter 612002842 Active 2019 Not Available [facility] 3 11:34:13 Lesion of neck 977673284 Active Not Available [facility] 3 11:34:13 Dyslipidemia 807837387 Active Not Available [facility] 3 11:34:13 Sleep disorder 02063756 Active 2019 Not Available [facility] 3 11:34:13 Vertigo 877308610 Active 2019 Not Available [facility] 3 11:34:13 Dizziness 748990513 Active 2019 Not Available [facility] 3 11:34:13 Hypothyroidis m 47803234 Active Not Available [facility] 3 11:34:13 Avulsion of toenail 049013104 Active 2019 Not Available [facility] 3 11:34:13 Foot pain 78704815 Active Not Available [facility] 3 11:34:13 Neck pain 51794135 Active Not Available [facility] 3 11:34:13 Dystrophia unguium 45872389 Active 2019 Not Available [facility] 3 11:34:13 Pain in limb 00768917 Active Not Available [facility] 3 11:34:13 Right upper quadrant pain 607946120 Active 2022 Not Available [facility] 3 11:34:13 Abdominal pain 38757714 Active 2022 Not Available [facility] 3 11:34:13 Notes:FEMALE PROBLEMS/INFECT IONS, SKIN PROBLEMS, THYROID DISEASE, URINARY/BLADDER/KIDNEY PROBLEMS Problem Notes None recorded. Procedures Surgical History Date Name Laterality Status Provider Name and Address Organization Details Recorded Time 0 biopsy of thyroid completed Not Available [facility] 08/29/2022 05:56:38 cosmetic surgery completed Not Available [facility] 08/29/2022 05:56:38 excision completed Not Available [facility] 05:56:38 Imaging Results None recorded. Procedure Notes None recorded. Medical Equipment None Reported. Allergies Allergen ID Allergen Name Allergen Category Reaction Reaction Severity Criticality Documentation Date Start Date Code Code System Note Provider Name and Address Organization Details Recorded Time 52854 Substance with sulfonami de structure and antibacte rial mechanism of action (substanc e) medicatio n Not available Not available Not available 08/29/2022 50716 8003 SNOMED child liao Not Available [facility] 06:09:25 Medications Name Sig Start Date Stop Date Status Note LastModified by Organization Details LastModified Time triamcinolo ne acetonide 0.5 % topical cream 03/05 completed Not Available Not Available Not Available fluconazole 150 mg tablet TAKE 1 TABLET BY MOUTH ONE DOSE 03/02 completed Not Available Not Available Not Available meloxicam 15 mg tablet Take 1 tablet every day by oral route. 02/22 completed Not Available Not Available Not Available Nexium 40 mg capsule,del ayed release Take 1 capsule every day by oral route. 2022 active Not Available Not Available Not Avai lable omeprazole 40 mg capsule,del ayed release active Not Available Not Available Not Available levothyroxi ne 75 mcg tablet TAKE 1 TABLET BY MOUTH EVERY DAY active Not Available Not Available No t Available cephalexin 500 mg capsule 09/02 completed Not Available Not Available Not Available pantoprazol e 40 mg tablet,bola yed release active Not Available Not Available Not Available lansoprazol e 30 mg capsule,del ayed release Take 1 capsule daily 01/07 completed Not Available Not Available Not Available promethazin e 25 mg tablet 09/02 completed Not Available Not Available Not Available etodolac 400 mg tablet Take 1 tablet twice a day by oral route with meals. active Not Available Not Available No t Available hydrocodone 5 mg-acetamin ophen 500 mg tablet 09/02 completed Not Available Not Available Not Available bisacodyl 5 mg tablet,bola yed release TAKE ALL 6 TABLETS BY MOUTH AT 8 AM ON 09/07/2021 . 03/02 completed Not Available Not Available Not Available ergocalcife rol (vitamin D2) 1,250 mcg (50,000 unit) capsule 09/02 completed Not Available Not Available Not Available diazepam 10 mg tablet 09/02 completed Not Available Not Available Not Available zolpidem 10 mg tablet 09/02 completed Not Available Not Available Not Available methylpredn isolone 4 mg tablets in a dose pack 07/08 completed Not Available Not Available Not Available indomethaci n ER 75 mg capsule,ext ended release 03/05 completed Not Available Not Available Not Available ondansetron 4 mg disintegrat ing tablet 09/02 completed Not Available Not Available Not Available amoxicillin 875 mg-potassiu m clavulanate 125 mg tablet 07/08 completed Not Available Not Available Not Available Daily-Kate tablet TAKE 1 TABLET BY MOUTH EVERY DAY 02/22 completed Not Available Not Available Not Available rosuvastati n 10 mg tablet TAKE 1 TABLET BY MOUTH EVERY DAY active Not Available Not Available No t Available calcium 600 mg (as carbonate)- vitamin D3 10 mcg (400 unit) tablet TAKE 1 TABLET BY MOUTH TWICE A DAY active Not Available Not Available No t Available estradiol-n orethindron e acet 0.5 mg-0.1 mg tablet TAKE 1 TABLET BY MOUTH EVERY DAY active Not Available Not Available No t Available GaviLyte-G 236 gram-22.74 gram-6.74 gram-5.86 gram oral solution DRINK 1/2 OF SOLUTION AT 5 PM ON 09/07/2021 AND OTHER 1/2 OF SOLUTION AT 5 AM ON 09/08/202103/02 completed Not Available Not Available Not Available Mimvey 1 mg-0.5 mg tablet TAKE 1 TABLET BY MOUTH EVERY DAY 08/31 completed Not Available Not Available Not Available Vitamin D2 02/22 completed Not Available Not Available Not Available calcium 600 mg (as carbonate)- vitamin D3 20 mcg (800 unit) tablet TAKE 1 TABLET BY MOUTH TWICE A DAY 02/22 completed Not Available Not Available Not Available Duavee 0.45 mg-20 mg tablet 01/23 completed Not Available Not Available Not Available Fluvirin 45 mcg (15 mcg x 3)/0.5 mL intramuscul ar suspension ADM 0.5ML UTD active Not Available Not Available No t Available Fluvirin 9512-9217 45 mcg (15 mcg x 3)/0.5 mL intramuscul ar suspension active Not Available Not Available N ot Available Fluvirin 3812-6158 45 mcg (15 mcg x 3)/0.5 mL intramuscul ar suspension ADM 0.5ML IM UTD 12/31 completed Not Available Not Available Not Available Flucelvax Quad 2781-8207 (PF) 60 mcg (15 mcg x 4)/0.5 mL IM syringe active Not Available Not Available N ot Available Flucelvax Quad (PF) 60 mcg (15 mcg x 4)/0.5 mL IM syringe active Not Available Not Available N ot Available Fluzone Quad (PF) 60 mcg (15 mcg x 4)/0.5 mL IM syringe active Not Available Not Available N ot Available Fluzone Quad (PF) 60 mcg (15 mcg x 4)/0.5 mL IM syringe active Not Available Not Available N ot Available Daily-Kate (with folic acid) 400 mcg tablet TAKE 1 TABLET BY MOUTH EVERY DAY 03/02 completed Not Available Not Available Not Available Vitals Date Recorded Body mass index (BMI) Body height Oxygen saturation Oxygen saturation in Arterial blood by Pulse oximetry Heart rate Body temperature Body weight Systolic blood pressure Diastolic blood pressure Provider Name and Address Organization Details Last Updated DateTime 2 30.1 kg/m2 158.75 cm 99 % 99 % 67 /min 97 [degF] 19471.9 3 g 136 mm[Hg] 70 mm[Hg] Not Available [facility] 3 06:01:46 Date Recorded Body height Body mass index (BMI) Body weight Body temperature Heart rate Systolic blood pressure Diastolic blood pressure Provider Name and Address Organization Details Last Updated DateTime 3 158.75 cm 30.4 kg/m2 00792.1 1 g 97.8 [degF] 64 /min 126 mm[Hg] 82 mm[Hg] ALLEN Antonio [place] - [facility] [place] [employer] [facility] 3 09:52:23 Date Recorded Body height Body mass index (BMI) Body weight Body temperature Heart rate Systolic blood pressure Diastolic blood pressure Provider Name and Address Organization Details Last Updated DateTime 3 158.75 cm 30.4 kg/m2 65161.1 1 g 97.6 [degF] 74 /min 132 mm[Hg] 82 mm[Hg] Noelle Quinn [facility] [employer] 3 09:49:45 Date Recorded Body height Body mass index (BMI) Body weight Body temperature Heart rate Systolic blood pressure Diastolic blood pressure Provider Name and Address Organization Details Last Updated DateTime 3 158.75 cm 30.4 kg/m2 30556.1 1 g 97.3 [degF] 69 /min 130 mm[Hg] 82 mm[Hg] ALLEN Antonio [employer] 3 14:56:51 Date Recorded Body mass index (BMI) Body height Heart rate Body temperature Body weight Systolic blood pressure Diastolic blood pressure Provider Name and Address Organization Details Last Updated DateTime 2 29.9 kg/m2 158.75 cm 71 /min 97.6 [degF] 99350.3 3 g 130 mm[Hg] 78 mm[Hg] Not Available [facility] 3 06:01:46 Social History Question Answer Notes LastModified by Organization Details LastModified Time Tobacco Smoking Status Former Smoker quit 1983 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 No [id number] Information not available 08/29/2022 What Is Your Level Of Caffeine Consumption? Heavy [id number] Information not available 08/29/2022 In The 14 Days Before Symptom Onset, Have You Had Close Contact With A Laboratory-conf irmed COVID-19 While That Case Was Ill? No [email or web address] Information not available 08/31/2022 In The 14 Days Before Symptom Onset, Have You Had Close Contact With A Person Who Is Under Investigation For COVID-19 While That Person Was Ill? No Information not available 08/31/2022 What Type Of Diet Are You Following? REGULAR [id number] Information not available 08/29/2022 What Is The Highest Grade Or Level Of School You Have Completed Or The Highest Degree You Have Received? [id number] [email or web address] Information not available 08/31/2022 Have There Been Any Changes To Your Family Or Social Situation? No [email or web address] Information not available 08/31/2022 What Is The Fluoride Status Of Your Home? Unknown [email or web address] Information not available 08/31/2022 When Did You Quit Smoking? 16+yearssincelastc igarette [email or web address] Information not available 08/31/2022 Are There Any Guns Present In Your Home? No [email or web address] Information not available 08/31/2022 Do You Use Insect Repellent Routinely? No [email or web address] Information not available 08/31/2022 Where Do You Live? SingleLevelHouse With Basement [email or web address] Information not available 08/31/2022 Do You Have A Medical Power Of Tobacco [place] Measurer? No [email or web address] Information not available 08/31/2022 What Was The Date Of Your Most Recent Tobacco Screening? 01/07/2023 [email or web address] Information not available 01/07/2023 Have You Ever Been Counseled For Unhealthy Alcohol Use? No [email or web address] Information not available 08/31/2022 Do You Have Any Pets? No [email or web address] Information not available 08/31/2022 What Is Your Relationship Status? [id number] Information not available 08/29/2022 Do You Use Your Seat Belt Or Car Seat Routinely? Yes [email or web address] Information not available 08/31/2022 Do You Have Smoke And Carbon Monoxide Detectors In Your Home? Yes [email or web address] Information not available 08/31/2022 Are You Passively Exposed To Smoke? No [email or web address] Information not available 08/31/2022 Are There Any Smokers In Your House? No [email or web address] Information not available 08/31/2022 What Types Of Sporting Activities Do You Participate In? None [email or web address] Information not available 08/31/2022 Do You Use Sunscreen Routinely? Yes [email or web address] Information not available 08/31/2022 Has Tobacco Cessation Counseling Been Provided? No [email or web address] Information not available 08/31/2022 Have You Recently Traveled Abroad? No [email or web address] Information not available 08/31/2022 Do You Have Any Dietary Restrictions? No Information not available 08/31/2022 Sex: Female Functional Status Question Answer Note LastModified by Organizat ion Details LastModified Time Do you use any illicit or recreational drugs? No [email or web address] Information not available 08/31/2022 Do you or have you ever used any other forms of tobacco or nicotine? No [email or web address] Information not available 08/31/2022 What is your level of alcohol consumption? 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 Moderate [id number] Information not available 08/29/2022 Mental Status Question Answer Note LastModified by Organization D etails LastModified Time Do you feel stressed (tense, restless, nervous, or anxious, or unable to sleep at night)? [id number] [email or web address] Information not available 08/31/2022 Family History Relationship Description Onset Age of this Age Resolved Age Notes LastModified by Organization Details LastModified Time Mother Hypertensive disorder [id number] Not available 08/29/2022 05:56:43 Mother Hypercholest erolemia [id number] Not available 08/29/2022 05:56:43 Mother Diabetes mellitus [id number] Not available 08/29/2022 05:56:43 Mother Cerebrovascu lar accident [email or web address] Not available 0 08/31/2022 09:35:49 Mother Neuropathy [email or web address] Not avai lable 08/31/2022 09:35:49 Mother Malignant neoplasm of lung 83 [email or web address] Not available 08/2022 09:35:49 Father Malignant neoplasm of lung [email or web address] Not available 08/2022 09:35:49 Medical History Condition Response NERVE DISEASE N BLINDNESS N RHEUMATIC FEVER N KIDNEY STONES N BLADDER PROBLEMS N MRSA N OTHER # 1 Y POLIO N LUNG DISEASE/DISORDER N HISTORY OF DRUG ABUSE N RADIATION / CHEMOTHERAPY N COPD N Other # 2 N BLOOD DISEASES N EAR OR HEARING PROBLEMS N MUMPS N SHINGLES N BOWEL PROBLEMS N DEPRESSION (INCLUDING POST ) N STROKE/TIA N ULCERS N BENIGN PROSTATIC HYPERPLASIA N MEASLES N HYPOTENSION N MYOCARDIAL INFARCTION N OBESITY N GERD/NAUSEA N ANEURYSM N URINARY/BLADDER/KIDNEY PROBLEMS N CORONARY ARTERY DISEASE (CAD) N ADDICTION CONCERNS N ENDOMETRIOSIS N Impotence N USE OF BLOOD THINNERS N SKIN PROBLEMS N GASTROINTESTINAL DISORDER N PERIPHERAL VASCULAR DISEASE N MUSCLE,JOINT OR BONE PROBLEMS N GASTROINTESTINAL BLEEDING N BLOOD CLOTS N ASTHMA N CATARACTS N ERECTILE DYSFUNCTION N VARICOSITIES N GI PROBLEMS N Low Testosterone N INFERTILITY N AIDS/HIV N CHEMOTHERAPY / RADIATION N LIVER DISEASE N MALE HYPOGONADISM N HYPERTENSION N Deficiency N TOURETTE'S N ANXIETY DISORDER N BLOOD TRANSFUSION N ANEMIA/BLOOD DISORDER N CHRONIC EAR INFECTIONS N BRONCHITIS N TUBERCULOSIS N GLAUCOMA N FOOT PROBLEM N DIVERTICULITIS N CHICKENPOX N SLEEP APNEA N INFECTIOUS DISEASE N HEART ARRHYTHMIA N PROSTATE N INSOMNIA N HIGH CHOLESTEROL / HYPERLIPIDEMIA Y HYPERTHYROIDISM N EYE PROBLEMS N EDEMA N CHRONIC PAIN SYNDROME N HYPOTHYROIDISM Y CAROTID BLOCKAGE N CONSTIPATION N BACK / NECK PROBLEMS N HAVE YOU BEEN HOSPITALIZED OR SEEN IN [facility] IN THE PAST YEAR ? N ATHEROSCLEROSIS N BREAST PROBLEMS N DIALYSIS N ECZEMA N OSTEOPOROSIS N ARTHRITIS N APPENDICITIS N DIABETES, TYPE N BAD TEETH N ENT N HEARTBURN / REFLUX N AUTISM SPECTRUM DISORDER (ASD) N HEPATITIS / LIVER DISEASE N GOUT N SLEEP DISORDER N ALZHEIMER'S DISEASE N Brain Problems N HERPES N DEMENTIA N HEADACHES/MIGRAINES N SEIZURES/EPILEPSY N VASCULAR DISEASE N PACEMAKER N Blood Disorder N DIZZINESS N HEART DISEASE/HEART PROBLEMS N KIDNEY DISEASE N MULTIPLE SCLEROSIS N CARDIAC ARRHYTHMIA N CANCER: SPECIFY N ATRIAL FIBRILLATION N Gall Stones N PULMONARY EMBOLISM N AUTOIMMUNE DISEASE N Gynecological HistoryNo gynecological history recorded. Obstetrics History GPAL:G 0 P 0 0 0 0 Immunizations Vaccine Type Date Status Note Provider Nam e and Address Organization Details Recorded Time influenza, unspecified formulation 3 completed ALL[facility] 03/20/2023 12:22:36 SARS-COV-2 (COVID-19) vaccine, UNSPECIFIED 3 completed [facility] 04/15/2023 09:57:57 Influenza, split virus, trivalent, preservative 3 completed Not Available [facility] 01/03/2023 11:33:53 COVID-19, mRNA, LNP-S, PF, 30 mcg/0.3 mL dose 1 completed Not Available [facility] 01/03/2023 11:33:53 COVID-19, mRNA, LNP-S, PF, 30 mcg/0.3 mL dose 1 completed Not Available [facility] 01/03/2023 11:33:53 Influenza, split virus, quadrivalent, preservative 0 completed Not Available [facility] 01/03/2023 11:33:53 Influenza, split virus, quadrivalent, preservative 9 completed Not Available [facility] 01/03/2023 11:33:53 Influenza, split virus, trivalent, preservative 9 completed Not Available [facility] 01/03/2023 11:33:53 Influenza, split virus, quadrivalent, preservative 8 completed Not Available [facility] 01/03/2023 11:33:53 Influenza, split virus, quadrivalent, preservative 7 completed Not Available [facility] 01/03/2023 11:33:53 Influenza, split virus, quadrivalent, preservative 6 completed Not Available [facility] 01/03/2023 11:33:53 Influenza, split virus, trivalent, preservative 4 completed Not Available [facility] 01/03/2023 11:33:53 COVID-19, mRNA, LNP-S, PF, 30 mcg/0.3 mL dose 2 completed Not Available [facility] 01/03/2023 11:33:53 Influenza, split virus, trivalent, preservative 2 completed Not Available [facility] 01/03/2023 11:33:53 COVID-19, mRNA, LNP-S, PF, 30 mcg/0.3 mL dose 1 completed Not Available [facility] 01/03/2023 11:33:53 Influenza, split virus, trivalent, preservative 1 completed Not Available [facility] 01/03/2023 11:33:53 Past Encounters Encounter ID Performer Location Encounter Start Date Encounter Closed Date Diagnosis/Indication Diagnosis SNOMED-CT Code Diagnosis ICD10 Code Diagnosis Note [id number] Yinka Chow MD [facility] Internal Med [facility] [address] [place] [address]., [address] [address] 02/22/2021 00:00:00 03/06/2021 16:39:07 [id number] Yinka Chow MD [facility] Internal Med [facility] [address] [place] [address].[address] [address] 08/25/2021 00:00:00 08/25/2021 20:21:54 [id number] Yinka Chow MD [facility] Internal Med [facility] [address] [place] [address]., [address] [address] 03/02/2022 00:00:00 03/05/2022 13:25:51 [id number] Yinka Chow MD [facility] Internal Med [facility] [address] [place] [address], [address] [address] 08/31/2022 09:34:29 08/31/2022 10:33:32 Dyslipidemia 208683780 E78.5 Hypothyroidism 35339693 E03.9 Long-term drug therapy 711280822 Z79.899 Multinodular goiter 2375 85420 E04.2 [id number] Yinka Chow MD [facility] Internal Med [facility] [address] [place] [address] 12/12/2022 09:41:12 12/12/2022 10:26:33 Abdominal pain 99657957 R10.9 [id number] Yinka Chow MD [facility] Internal Med [facility] [address] [place] [address] 1 01/07/2023 14:49:53 01/07/2023 15:42:25 Abdominal pain 61699794 R10.9 Health Concerns Section Related Observation LastModified by Organization Detai ls LastModified Time None Recorded Concern Status LastModified by Organization Details LastModified Time None Recorded Advance Directives Directive N: Payers Encounter Date Sequence Insurance Name Policy Number Policy Yee Covered Member ID Yee Member ID Guarantor Name 08/31/2022 1 [employer] (PPO) [id number] Pebbles Zavaleta [id number] Pebbles Zavaleta 12/12/2022 1 [place] [id number] 0 Pebbles Lilly Rashi [id number] Pebbles Lilly Rashi 01/07/2023 1 [place] [id number] 0 Pebbles Coronaught [id number] Pebbles Zavaleta Notes Date Note Type Note Provider Name and Address Organization Details Recorded Time 3 text/html Dyslipidemia tries to follow low-fat dietHypothyroid no heat or cold intoleranceMultinodular goiter [facility]NA May Yinka Chow MD [address], [place], [address], [facility] 08/31/2022 11:25:42 3 text/html abdominal discomfort nothing specific on her ultrasound right upper quadrant goes into the epigastrium does not radiate comes with no rhyme or reason [id number] sometimes it will be at night sometimes during the day no sweaty spells no chest pain no shortness of breaths no melena Yinka Chow MD [address], [place], [address], [facility] 12/12/2022 11:28:03 3 text/html Still has some abdominal pain CT scan was unrevealing the pain comes and goes no rhyme or reason, dull ache at times it seems to be sometimes epigastric sometimes in the lower quadrants bilaterally with no clear-cut change in stool habits 1 time it awakened her from sleep. No weight loss Yinka Chow MD [address], [place], [address], [facility] 01/07/2023 22:17:58 OBGyn Episode No OBEpisode recorded.
== END 2024-12-08 08:34 | disposition home or self-care (01) ==
PROVIDERS: PCP Internal Medicine; Visit Provider Obstetrics & Gynecology
DX: Z12.31 Encounter for screening mammogram for malignant neoplasm of breast (principal); Z13.820 Encounter for screening for osteoporosis; M85.88 Other specified disorders of bone density and structure, other site; M85.851 Other specified disorders of bone density and structure, right thigh
CPT/HCPCS: 77063; 77067; 77080